=== PATIENT | female | born 1945 | race Caucasian/White ===

== ENCOUNTER 2022-08-27 22:30 | Inpatient (IN) | payer MEDICARE, BC ==
[2022-08-27] MEDS ORDERED: Albuterol 2.5 MG/0.5 ML NEB ONE (23:01)
[2022-08-27] MEDS ORDERED: methylPREDNISolone Sod Succ/PF 125 MG/2 ML VIAL ONE (23:01)
[2022-08-27] MEDS ORDERED: Ipratropium Bromide 2.5 ml Neb ONE (23:02)
[2022-08-27 23:18] LABS: #Eosinphils 0.3 thou/uL (0.0-0.7); #Lymphocytes 1.3 thou/uL (1.20-3.40); #Monocytes 0.4 thou/uL (0.11-0.59); #Neutrophils 5.2 thou/uL (1.40-6.50); %Basophils 0.4 % (0.0-1.0); %Eosinophils 3.6 % (0.0-10.0); %Monocytes 5.9 % (0.0-10.0); %Neutrophils 72.2 % (42.0-75.0); Hemoglobin 12.2 g/dL (12.0-16.0); Mean Corpuscular HGB CONC 31.1 g/dL (32.0-36.0); Mean Corpuscular Hemoglobin 29.3 pg (27.0-31.0); Mean Corpuscular Volume 94.2 fl (78.0-98.0); Mean Platelet Volume 6.9 fL (7.4-10.4); Platelet Count 169 10x3/uL (130-400); RBC Distribution Width 14.9 % (11.5-14.5); Red Blood Cell (RBC) Count 4.18 mill/uL (4.20-5.40); White Blood Cell (WBC) Count 7.3 10x3/uL (4.8-10.8)
[2022-08-27 23:42] LABS: Acetaminophen Less than 10.0 mcg/mL (10.0-30.0); Alcohol Less than 10 mg/dL (Less than 10); Salicylate Less than 8.0 mg/dL (15.0-30.0)
[2022-08-27 23:43] LABS: ALT (SGPT) 11 U/L (8-55); AST (SGOT) 15 U/L (5-34); Albumin 3.8 g/dL (3.4-4.8); Alkaline Phosphatase 93 U/L (40-110); Anion Gap 13 mmol/L (10-20); BUN (Urea Nitrogen) 16 mg/dL (9.8-20.1); Bilirubin, Total 1.2 mg/dL (0.2-1.2); Calc. Creatinine Clearance 0 mL/min (70-130); Carbon Dioxide 30 mmol/L (23-31); Chloride 104 mmol/L (98-107); Estimated GFR 85; Globulin 3.1 g/dL (2.4-3.5); Glucose 97 mg/dL (83-110); Potassium 4.6 mmol/L (3.5-5.1); Protein, Total 6.9 g/dL (5.8-8.1); Sodium 142 mmol/L (136-145)
[2022-08-27 23:58] LABS: Actual Bicarbonate (HCO3a) 34.6 mEq/L (22-28); Analyzer IN Cardio ER; Carboxyhemoglobin (COHb) 1.3 gm% (0.0-3.0); Hemoglobin (Hb) 13.4 g/dL (12.0-16.0); Potassium - ABG Lab 4.46 mmol/L (3.70-5.30)
[2022-08-27 23:59] LABS: CO2 Tension 96.5 mmHg (35.0-45.0); O2 Tension (PaO2), arterial 44.9 mmHg (> 70.0); pH, Arterial 7.17 (7.35-7.45)
[2022-08-28] LABS: ALV-art Gradient 62.635 mmHg (0-20); Puncture Site L RAD
[2022-08-28] MEDS ORDERED: Acetaminophen 325 MG TAB PO PRN (00:35)
[2022-08-28] MEDS ORDERED: Ondansetron PF 4 MG/2 ML Vial IVP PRN (00:35)
[2022-08-28] MEDS ORDERED: Cefepime 2 GM VIAL ONE (00:58)
[2022-08-28 01:54] LABS: Analyzer IN Cardio ER; Base Excess (BEa) 7.7 mEq/L (-2.0 to +3.0); Calcium, Ionized (arterial) 1.19 mmol/L (1.12-1.30); Hemoglobin (Hb) 13.5 g/dL (12.0-16.0); O2 Tension (PaO2), arterial 96.8 mmHg (> 70.0); Potassium - ABG Lab 4.57 mmol/L (3.70-5.30)
[2022-08-28 01:57] LABS: CO2 Tension 120.1 mmHg (35.0-45.0); Puncture Site L RAD; pH, Arterial 7.15 (7.35-7.45)
[2022-08-28 01:58] LABS: ALV-art Gradient 109.575 mmHg (0-20)
[2022-08-28 02:01] LABS: SARS-CoV-2 NAA Rapid Test Not Detected (NotDetected)
[2022-08-28] MEDS ORDERED: Sodium Chloride 0.9% 1,000 ML IV SCH ×2 (03:00→09:45)
[2022-08-28 03:02] LABS: Actual Bicarbonate (HCO3a) 32.6 mEq/L (22-28); Base Excess (BEa) 1.8 mEq/L (-2.0 to +3.0); Calcium, Ionized (arterial) 1.22 mmol/L (1.12-1.30); Carboxyhemoglobin (COHb) 1.1 gm% (0.0-3.0); Hemoglobin (Hb) 13.7 g/dL (12.0-16.0); O2 Tension (PaO2), arterial 66.4 mmHg (> 70.0); Potassium - ABG Lab 4.69 mmol/L (3.70-5.30)
[2022-08-28 03:07] LABS: CO2 Tension 86.1 mmHg (35.0-45.0); Puncture Site RRA
[2022-08-28 03:08] LABS: ALV-art Gradient 146.825 mmHg (0-20)
[2022-08-28] MEDS: Ipratropium/Albuterol 3 ML NEB NEB SCH ×6 (03:14→22:46)
[2022-08-28 03:35] LABS: Amphetamine Not Detected (NotDetected); Barbiturates Screen Not Detected (NotDetected); Benzodiazepine Screen Detected (NotDetected); Cocaine Metabolite Screen Not Detected (NotDetected); Methadone Not Detected (NotDetected); Methamphetamine Not Detected (NotDetected); Opiate Screen Detected (NotDetected); Oxycodone Screen Detected (NotDetected); Phencyclidine (PCP) Detected (NotDetected); THC/Cannabinoid Screen Not Detected (NotDetected); Tricyclic Screen Not Detected (NotDetected)
[2022-08-28 03:42] VITALS: BMI 33.6
[2022-08-28] MEDS: Azithromycin 500 MG in Sodium Chloride 0.9% 250 ML 250 ML IVPB SCH (04:05)
[2022-08-28 04:28] LABS: #Eosinphils 0.1 thou/uL (0.0-0.7); #Lymphocytes 0.4 thou/uL (1.20-3.40); #Monocytes 0.1 thou/uL (0.11-0.59); #Neutrophils 6.2 thou/uL (1.40-6.50); %Eosinophils 0.8 % (0.0-10.0); %Lymphocytes 6.2 % (21.0-51.0); %Monocytes 1.3 % (0.0-10.0); %Neutrophils 91.8 % (42.0-75.0); Hemoglobin 13.9 g/dL (12.0-16.0); Mean Corpuscular HGB CONC 31.2 g/dL (32.0-36.0); Mean Corpuscular Hemoglobin 29.5 pg (27.0-31.0); Mean Corpuscular Volume 94.6 fl (78.0-98.0); Mean Platelet Volume 7.1 fL (7.4-10.4); Platelet Count 151 10x3/uL (130-400); RBC Distribution Width 15.1 % (11.5-14.5); Red Blood Cell (RBC) Count 4.73 mill/uL (4.20-5.40); White Blood Cell (WBC) Count 6.8 10x3/uL (4.8-10.8)
[2022-08-28 04:31] LABS: Actual Bicarbonate (HCO3a) 29.5 mEq/L (22-28); Carboxyhemoglobin (COHb) 1.2 gm% (0.0-3.0); Hemoglobin (Hb) 13.5 g/dL (12.0-16.0); O2 Tension (PaO2), arterial 82.6 mmHg (> 70.0); pH, Arterial 7.23 (7.35-7.45)
[2022-08-28 04:33] LABS: CO2 Tension 72.4 mmHg (35.0-45.0); Puncture Site RRA
[2022-08-28 04:47] LABS: Anion Gap 14 mmol/L (10-20); BUN (Urea Nitrogen) 16 mg/dL (9.8-20.1); Calc. Creatinine Clearance 99 mL/min (70-130); Calcium 9.4 mg/dL (7.8-10.44); Carbon Dioxide 30 mmol/L (23-31); Chloride 103 mmol/L (98-107); Estimated GFR 88; Glucose 131 mg/dL (83-110); Potassium 4.9 mmol/L (3.5-5.1); Sodium 142 mmol/L (136-145)
[2022-08-28] MEDS: methylPREDNISolone Sod Succ 40 MG VIAL IVP SCH ×3 (05:54→18:12)
[2022-08-28 09:02] LABS: Legionella Urinary Ag Negative (Negative); Strep pneumo Urine Ag NEGATIVE (NEGATIVE)
[2022-08-28] MEDS: Nicotine 21 MG PATCH TOP SCH (11:42)
[2022-08-28] MEDS: cefTRIAXone\\ROCEPHIN 1 GM in Sodium Chloride 0.9% 100 ML IVPB SCH (11:45)
[2022-08-28] MEDS: Mometasone/Formoterol 200/5 60 PUFF INH SCH (19:35)
[2022-08-28] MEDS: Famotidine 20 MG TAB PO SCH (20:42)
[2022-08-29] MEDS: methylPREDNISolone Sod Succ 40 MG VIAL IVP SCH ×6 (00:13→23:59)
[2022-08-29] MEDS: Melatonin 3 MG TAB PO PRN ×2 (00:15→20:30)
[2022-08-29] MEDS: Azithromycin 500 MG in Sodium Chloride 0.9% 250 ML 250 ML IVPB SCH (00:18)
[2022-08-29] MEDS: Ipratropium/Albuterol 3 ML NEB NEB SCH ×6 (02:21→22:15)
[2022-08-29 05:48] LABS: #Lymphocytes 0.5 thou/uL (1.20-3.40); #Monocytes 0.2 thou/uL (0.11-0.59); %Basophils 0.1 % (0.0-1.0); %Eosinophils 0.1 % (0.0-10.0); %Lymphocytes 6.1 % (21.0-51.0); %Monocytes 1.9 % (0.0-10.0); %Neutrophils 91.9 % (42.0-75.0); Hemoglobin 12.2 g/dL (12.0-16.0); Mean Corpuscular HGB CONC 31.5 g/dL (32.0-36.0); Mean Corpuscular Volume 92.1 fl (78.0-98.0); Mean Platelet Volume 7.3 fL (7.4-10.4); Platelet Count 191 10x3/uL (130-400); RBC Distribution Width 14.7 % (11.5-14.5); Red Blood Cell (RBC) Count 4.19 mill/uL (4.20-5.40); White Blood Cell (WBC) Count 8.7 10x3/uL (4.8-10.8)
[2022-08-29 06:06] LABS: Anion Gap 13 mmol/L (10-20); BUN (Urea Nitrogen) 18 mg/dL (9.8-20.1); Calc. Creatinine Clearance 106 mL/min (70-130); Carbon Dioxide 29 mmol/L (23-31); Chloride 101 mmol/L (98-107); Estimated GFR 90; Glucose 164 mg/dL (83-110); Potassium 3.6 mmol/L (3.5-5.1); Sodium 139 mmol/L (136-145)
[2022-08-29] MEDS: Mometasone/Formoterol 200/5 60 PUFF INH SCH ×2 (07:40→18:56)
[2022-08-29] MEDS ORDERED: FLU VACC QS2022-23(65YR UP)/PF 240 MCG/0.7 ML SYRINGE IM ONE (09:00)
[2022-08-29] MEDS: Famotidine 20 MG TAB PO SCH ×2 (10:19→20:29)
[2022-08-29] MEDS: cefTRIAXone\\ROCEPHIN 1 GM in Sodium Chloride 0.9% 100 ML IVPB SCH (13:23)
[2022-08-29] MEDS: Nicotine 21 MG PATCH TOP SCH (13:25)
[2022-08-30] MEDS: Azithromycin 500 MG in Sodium Chloride 0.9% 250 ML 250 ML IVPB SCH ×2 (00:01→23:57)
[2022-08-30] MEDS: Ipratropium/Albuterol 3 ML NEB NEB SCH ×6 (02:18→22:42)
[2022-08-30] MEDS: methylPREDNISolone Sod Succ 40 MG VIAL IVP SCH ×4 (05:29→23:54)
[2022-08-30 06:49] LABS: Hemoglobin 13.3 g/dL (12.0-16.0); Mean Corpuscular HGB CONC 32.1 g/dL (32.0-36.0); Mean Corpuscular Hemoglobin 29.9 pg (27.0-31.0); Mean Corpuscular Volume 93.1 fl (78.0-98.0); Platelet Count 219 10x3/uL (130-400); RBC Distribution Width 14.8 % (11.5-14.5); Red Blood Cell (RBC) Count 4.44 mill/uL (4.20-5.40); White Blood Cell (WBC) Count 8.2 10x3/uL (4.8-10.8)
[2022-08-30 06:53] LABS: #Lymphocytes 0.6 thou/uL (1.20-3.40); #Monocytes 0.3 thou/uL (0.11-0.59); #Neutrophils 7.5 thou/uL (1.40-6.50); %Eosinophils 0.2 % (0.0-10.0); %Lymphocytes 6.9 % (21.0-51.0); %Neutrophils 88.9 % (42.0-75.0); Hemoglobin 13.5 g/dL (12.0-16.0); Mean Corpuscular HGB CONC 32.4 g/dL (32.0-36.0); Mean Corpuscular Hemoglobin 30.1 pg (27.0-31.0); Platelet Count 221 10x3/uL (130-400); RBC Distribution Width 14.8 % (11.5-14.5); Red Blood Cell (RBC) Count 4.47 mill/uL (4.20-5.40); White Blood Cell (WBC) Count 8.4 10x3/uL (4.8-10.8)
[2022-08-30 07:13] LABS: ALT (SGPT) 12 U/L (8-55); AST (SGOT) 21 U/L (5-34); Albumin 3.6 g/dL (3.4-4.8); Alkaline Phosphatase 75 U/L (40-110); Anion Gap 14 mmol/L (10-20); BUN (Urea Nitrogen) 19 mg/dL (9.8-20.1); Bilirubin, Total 0.8 mg/dL (0.2-1.2); Calc. Creatinine Clearance 100 mL/min (70-130); Calcium 9.5 mg/dL (7.8-10.44); Carbon Dioxide 31 mmol/L (23-31); Chloride 100 mmol/L (98-107); Estimated GFR 89; Globulin 3.1 g/dL (2.4-3.5); Glucose 130 mg/dL (83-110); Potassium 3.9 mmol/L (3.5-5.1); Protein, Total 6.7 g/dL (5.8-8.1); Sodium 141 mmol/L (136-145)
[2022-08-30] MEDS: Mometasone/Formoterol 200/5 60 PUFF INH SCH ×2 (07:56→19:15)
[2022-08-30] MEDS: Famotidine 20 MG TAB PO SCH ×2 (08:39→20:40)
[2022-08-30] MEDS ORDERED: Iopamidol 370 76% 100 ML VIAL ONE (09:11)
[2022-08-30] MEDS: cefTRIAXone\\ROCEPHIN 1 GM in Sodium Chloride 0.9% 100 ML IVPB SCH (13:02)
[2022-08-30] MEDS: Nicotine 21 MG PATCH TOP SCH (13:14)
[2022-08-30] MEDS: traZODone HCl 50 MG TAB PO PRN (21:36)
[2022-08-31] MEDS: Ipratropium/Albuterol 3 ML NEB NEB SCH ×3 (02:12→10:53)
[2022-08-31 05:57] LABS: Hemoglobin 14.5 g/dL (12.0-16.0); Mean Corpuscular HGB CONC 33.3 g/dL (32.0-36.0); Mean Corpuscular Hemoglobin 30.4 pg (27.0-31.0); Mean Corpuscular Volume 91.3 fl (78.0-98.0); Mean Platelet Volume 7.1 fL (7.4-10.4); Platelet Count 263 10x3/uL (130-400); RBC Distribution Width 14.8 % (11.5-14.5); Red Blood Cell (RBC) Count 4.77 mill/uL (4.20-5.40); White Blood Cell (WBC) Count 10.6 10x3/uL (4.8-10.8)
[2022-08-31] MEDS: methylPREDNISolone Sod Succ 40 MG VIAL IVP SCH ×4 (06:04→23:43)
[2022-08-31 06:19] LABS: ALT (SGPT) 19 U/L (8-55); AST (SGOT) 27 U/L (5-34); Alkaline Phosphatase 81 U/L (40-110); Anion Gap 19 mmol/L (10-20); BUN (Urea Nitrogen) 22 mg/dL (9.8-20.1); Bilirubin, Total 0.9 mg/dL (0.2-1.2); Calc. Creatinine Clearance 96 mL/min (70-130); Calcium 9.7 mg/dL (7.8-10.44); Carbon Dioxide 26 mmol/L (23-31); Chloride 99 mmol/L (98-107); Estimated GFR 85; Globulin 3.6 g/dL (2.4-3.5); Glucose 138 mg/dL (83-110); Potassium 3.5 mmol/L (3.5-5.1); Protein, Total 7.6 g/dL (5.8-8.1); Sodium 140 mmol/L (136-145)
[2022-08-31] MEDS: Mometasone/Formoterol 200/5 60 PUFF INH SCH ×2 (07:47→19:07)
[2022-08-31] MEDS: Famotidine 20 MG TAB PO SCH ×2 (09:06→20:28)
[2022-08-31] MEDS ORDERED: Metoprolol Tartrate 5 MG/5 ML VIAL IVP STA (11:00)
[2022-08-31] MEDS ORDERED: ALPRAZolam 0.25 MG TAB PO PRN (11:22)
[2022-08-31] MEDS ORDERED: ALPRAZolam 0.25 MG TAB PO SCH (11:30)
[2022-08-31] MEDS ORDERED: Labetalol HCl 100 MG/20 ML VIAL SLOW IVP SCH (11:42)
[2022-08-31] MEDS ORDERED: guaiFENesin ER 600 MG TAB PO SCH (11:45)
[2022-08-31] MEDS: cefTRIAXone\\ROCEPHIN 1 GM in Sodium Chloride 0.9% 100 ML IVPB SCH (12:36)
[2022-08-31] MEDS: Nicotine 21 MG PATCH TOP SCH (14:27)
[2022-08-31] MEDS ORDERED: Metoprolol Tartrate 50 MG TAB PO SCH (17:00)
[2022-08-31] MEDS ORDERED: Amlodipine 5 MG TAB PO SCH (17:00)
[2022-08-31] MEDS: Ipratropium/Albuterol 3 ML NEB EZPAP PRN (19:06)
[2022-08-31] MEDS: traZODone HCl 50 MG TAB PO PRN (20:28)
[2022-08-31] MEDS: guaiFENesin ER 600 MG TAB PO SCH (20:28)
[2022-08-31] MEDS: Metoprolol Tartrate 50 MG TAB PO SCH (20:29)
[2022-08-31] MEDS: Azithromycin 500 MG in Sodium Chloride 0.9% 250 ML 250 ML IVPB SCH (23:51)
[2022-09-01] MEDS: methylPREDNISolone Sod Succ 40 MG VIAL IVP SCH ×2 (06:15→12:24)
[2022-09-01] MEDS: Metoprolol Tartrate 50 MG TAB PO SCH ×2 (09:21→21:32)
[2022-09-01] MEDS: Famotidine 20 MG TAB PO SCH ×2 (09:21→21:31)
[2022-09-01] MEDS: Amlodipine 5 MG TAB PO SCH (09:21)
[2022-09-01] MEDS: guaiFENesin ER 600 MG TAB PO SCH ×2 (09:21→21:32)
[2022-09-01] MEDS: Nicotine 21 MG PATCH TOP SCH (09:24)
[2022-09-01] MEDS ORDERED: Sertraline 25 MG TAB PO SCH (09:45)
[2022-09-01] MEDS: Mometasone/Formoterol 200/5 60 PUFF INH SCH ×2 (11:02→18:55)
[2022-09-01] MEDS: cefTRIAXone\\ROCEPHIN 1 GM in Sodium Chloride 0.9% 100 ML IVPB SCH (12:24)
[2022-09-01] MEDS: Ipratropium/Albuterol 3 ML NEB EZPAP PRN (18:54)
[2022-09-01] MEDS: traZODone HCl 50 MG TAB PO PRN (21:32)
[2022-09-02] MEDS: Mometasone/Formoterol 200/5 60 PUFF INH SCH (07:09)
[2022-09-02 07:32] VITALS: BP 118/78; TEMP 97.8
[2022-09-02] MEDS: guaiFENesin ER 600 MG TAB PO SCH (07:32)
[2022-09-02] MEDS: Amlodipine 5 MG TAB PO SCH (07:33)
[2022-09-02] MEDS: Famotidine 20 MG TAB PO SCH (07:33)
[2022-09-02] MEDS: Metoprolol Tartrate 50 MG TAB PO SCH (07:33)
[2022-09-02] MEDS ORDERED: predniSONE 20 MG TAB PO SCH (08:00)
[2022-09-02] MEDS ORDERED: Sertraline 25 MG TAB PO SCH (09:00)
== END 2022-09-02 09:47 | disposition left against medical advice (07) | DRG 193 ==
LOC: ERS 22:30 → CCU 08-28 00:45 → MSONC 08-28 16:31
PROVIDERS: ADMIT Internal Medicine; ATTEND Family Medicine
PROC: 5A09357 Assistance with Respiratory Ventilation, Less than 24 Consecutive Hours, Continuous Positive Airway Pressure (ICD-10-PCS; principal; 2022-08-28)
DX: J18.9 Pneumonia, unspecified organism (principal); J96.21 Acute and chronic respiratory failure with hypoxia; J96.22 Acute and chronic respiratory failure with hypercapnia; J44.1 Chronic obstructive pulmonary disease with (acute) exacerbation; J44.0 Chronic obstructive pulmonary disease with (acute) lower respiratory infection; Z51.5 Encounter for palliative care; Z20.822 Contact with and (suspected) exposure to COVID-19; I10 Essential (primary) hypertension; R91.8 Other nonspecific abnormal finding of lung field; F17.210 Nicotine dependence, cigarettes, uncomplicated; Z98.890 Other specified postprocedural states; Z88.8 Allergy status to other drugs, medicaments and biological substances; Z88.2 Allergy status to sulfonamides; Z79.51 Long term (current) use of inhaled steroids; Z99.81 Dependence on supplemental oxygen; Z79.01 Long term (current) use of anticoagulants
CPT/HCPCS: 36415; 36600; 71045; 71046; 71260; 80048; 80053; 80306; 80307; 82805; 83605; 83880; 84484; 85025; 85027; 87040; 87070; 87205; 87449; 87633; 87899; 93005; 94640; 94660; 96374; 96375; J0456; J0692; J0696; J1650; J2920; J2930; J3490; J7050; J7512; J7611; J7620; Q9967; U0002

== ENCOUNTER 2022-09-18 11:53 | Inpatient (IN) | payer OTHER, MEDICARE, BC ==
[2022-09-18] MEDS ORDERED: Boostrix 0.5 ML (Tdap) VIAL (>/=7 yrs of age) ONE (12:03)
[2022-09-18] MEDS ORDERED: CEFAZOLIN 2 GM VIAL ONE (12:03)
[2022-09-18] MEDS ORDERED: Calcium Chloride 1 GM/10 ML Abboject SYRINGE ONE (12:05)
[2022-09-18 12:32] LABS: INR-International Normal Ratio 0.9; PTT 26.5 sec (22.9-36.1); Prothrombin Time 12.4 sec (12.0-14.7)
[2022-09-18 12:38] LABS: Hemoglobin 9.7 g/dL (12.0-16.0); Mean Corpuscular HGB CONC 31.2 g/dL (32.0-36.0); Mean Corpuscular Hemoglobin 29.7 pg (27.0-31.0); Mean Corpuscular Volume 95.2 fl (78.0-98.0); Mean Platelet Volume 7.5 fL (7.4-10.4); Platelet Count 139 10x3/uL (130-400); RBC Distribution Width 14.6 % (11.5-14.5); Red Blood Cell (RBC) Count 3.26 mill/uL (4.20-5.40); White Blood Cell (WBC) Count 4.9 10x3/uL (4.8-10.8)
[2022-09-18] MEDS ORDERED: Ondansetron ODT 4 MG TAB PO PRN (12:42)
[2022-09-18] MEDS ORDERED: Dextrose 5% in Water 1,000 ML IV PRN (12:42)
[2022-09-18] MEDS ORDERED: Ondansetron PF 4 MG/2 ML Vial IVP PRN (12:42)
[2022-09-18] MEDS ORDERED: TETANUS, DIPHTHERIA TOX,ADULT (TDVAX) 0.5 ML VIAL IM ONE (12:42)
[2022-09-18] MEDS ORDERED: Dextrose 50% Abboject 50 ML SYRINGE SLOW IVP PRN (12:42)
[2022-09-18 12:52] LABS: #Eosinphils 0.1 thou/uL (0.0-0.7); #Lymphocytes 0.8 thou/uL (1.20-3.40); #Monocytes 0.4 thou/uL (0.11-0.59); #Neutrophils 3.6 thou/uL (1.40-6.50); %Basophils 0.5 % (0.0-1.0); %Eosinophils 2.8 % (0.0-10.0); %Lymphocytes 16.4 % (21.0-51.0); %Monocytes 7.1 % (0.0-10.0); %Neutrophils 73.3 % (42.0-75.0); MDiff Complete? YES; Platelet Morphology Comment Appears Adequate; Polychromasia SLIGHT = 2-3 cells (100X) (0-2/hpf)
[2022-09-18 12:53] LABS: ALT (SGPT) 13 U/L (8-55); AST (SGOT) 14 U/L (5-34); Albumin 2.5 g/dL (3.4-4.8); Alkaline Phosphatase 64 U/L (40-110); Anion Gap 10 mmol/L (10-20); BUN (Urea Nitrogen) 15 mg/dL (9.8-20.1); Bilirubin, Total 0.8 mg/dL (0.2-1.2); Calc. Creatinine Clearance 0 mL/min (70-130); Calcium 8.6 mg/dL (7.8-10.44); Carbon Dioxide 34 mmol/L (23-31); Chloride 98 mmol/L (98-107); Estimated GFR 90; Globulin 2.6 g/dL (2.4-3.5); Glucose 150 mg/dL (83-110); Potassium 3.7 mmol/L (3.5-5.1); Protein, Total 5.1 g/dL (5.8-8.1); Sodium 138 mmol/L (136-145)
[2022-09-18] MEDS ORDERED: Acetaminophen 325 MG TAB PO SCH (13:00)
[2022-09-18 13:44] LABS: Analyzer IN Cardio ER; Calcium, Ionized (arterial) 1.28 mmol/L (1.12-1.30); Carboxyhemoglobin (COHb) 0.6 gm% (0.0-3.0); Hemoglobin (Hb) 11.5 g/dL (12.0-16.0); O2 Tension (PaO2), arterial 94.8 mmHg (> 70.0); Potassium - ABG Lab 3.62 mmol/L (3.70-5.30)
[2022-09-18 13:59] LABS: CO2 Tension 79.8 mmHg (35.0-45.0); Puncture Site RRA
[2022-09-18] MEDS ORDERED: Fentanyl 100 MCG/2 ML VIAL SLOW IVP SCH (15:15)
[2022-09-18 15:27] VITALS: BMI 40.0
[2022-09-18] MEDS: Ipratropium/Albuterol 3 ML NEB NEB SCH ×2 (15:33→19:11)
[2022-09-18 16:06] LABS: Actual Bicarbonate (HCO3v) 32 mEq/L (22-28); Base Excess 6.7 mEq/L (-2.0 to +3.0); Calcium, Ionized (venous) 1.15 mmol/L (1.16-1.32); Chloride (VBG) 100 mmol/L (98-106); Potassium (VBG) 3.73 mmol/L (3.70-5.30); Sodium 137.9 mmol/L (133-146); pH (venous) 7.46 (7.32-7.43)
[2022-09-18 16:31] LABS: SARS-CoV-2 NAA Rapid Test Not Detected (NotDetected)
[2022-09-18] MEDS: traMADol HCl 50 MG TAB PO PRN (16:38)
[2022-09-18] MEDS: Acetaminophen 325 MG TAB PO SCH ×2 (17:31→23:29)
[2022-09-18] MEDS: Nystatin Cream 15 GM TUBE TOP SCH ×2 (17:32→23:29)
[2022-09-18] MEDS: Morphine 2 MG/ML VIAL SLOW IVP SCH (18:34)
[2022-09-18] MEDS: traMADol HCl 50 MG TAB PO SCH ×2 (18:34→23:28)
[2022-09-18 18:39] LABS: Hemoglobin 10.9 g/dL (12.0-16.0)
[2022-09-18] MEDS: Budesonide 0.5 MG/2 ML NEB NEB SCH (19:13)
[2022-09-18] MEDS: Famotidine 20 MG TAB PO SCH (23:28)
[2022-09-19] MEDS: Ibuprofen 200 MG TAB PO SCH ×3 (00:23→12:41)
[2022-09-19] MEDS: Morphine 2 MG/ML VIAL SLOW IVP SCH (02:23)
[2022-09-19] MEDS: traMADol HCl 50 MG TAB PO SCH ×3 (05:57→17:49)
[2022-09-19] MEDS: Acetaminophen 325 MG TAB PO SCH ×4 (05:58→22:49)
[2022-09-19] MEDS: Budesonide 0.5 MG/2 ML NEB NEB SCH (07:23)
[2022-09-19] MEDS: Ipratropium/Albuterol 3 ML NEB NEB SCH ×4 (07:23→18:59)
[2022-09-19] MEDS ORDERED: Ferrous Sulfate 325 MG TAB PO SCH (08:00)
[2022-09-19 08:46] LABS: #Eosinphils 0.2 thou/uL (0.0-0.7); #Lymphocytes 1.1 thou/uL (1.20-3.40); #Monocytes 0.4 thou/uL (0.11-0.59); #Neutrophils 3.1 thou/uL (1.40-6.50); %Basophils 0.4 % (0.0-1.0); %Eosinophils 3.5 % (0.0-10.0); %Lymphocytes 23.1 % (21.0-51.0); %Monocytes 7.3 % (0.0-10.0); %Neutrophils 65.6 % (42.0-75.0); Hemoglobin 9.8 g/dL (12.0-16.0); Mean Corpuscular HGB CONC 31.5 g/dL (32.0-36.0); Mean Corpuscular Hemoglobin 28.9 pg (27.0-31.0); Mean Corpuscular Volume 91.8 fl (78.0-98.0); Mean Platelet Volume 7.6 fL (7.4-10.4); Platelet Count 135 10x3/uL (130-400); RBC Distribution Width 17.9 % (11.5-14.5); Red Blood Cell (RBC) Count 3.38 mill/uL (4.20-5.40); White Blood Cell (WBC) Count 4.7 10x3/uL (4.8-10.8)
[2022-09-19 09:00] LABS: Anion Gap 9 mmol/L (10-20); BUN (Urea Nitrogen) 13 mg/dL (9.8-20.1); Calc. Creatinine Clearance 122 mL/min (70-130); Calcium 8.9 mg/dL (7.8-10.44); Carbon Dioxide 34 mmol/L (23-31); Chloride 98 mmol/L (98-107); Estimated GFR 91; Glucose 100 mg/dL (83-110); Magnesium 1.8 mg/dL (1.6-2.6); Phosphorus 3.6 mg/dL (2.3-4.7); Potassium 3.4 mmol/L (3.5-5.1); Sodium 138 mmol/L (136-145)
[2022-09-19] MEDS: Nystatin Cream 15 GM TUBE TOP SCH ×2 (09:00→21:00)
[2022-09-19] MEDS: Ferrous Sulfate 325 MG TAB PO SCH (09:12)
[2022-09-19] MEDS: Ascorbic Acid 500 mg Chewable Tablet PO SCH (09:12)
[2022-09-19] MEDS: Famotidine 20 MG TAB PO SCH ×2 (09:12→22:48)
[2022-09-19] MEDS ORDERED: Magnesium 2 GM/50 ML(in water) 2 GM in Premix Bag 1 BAG IVPB SCH (17:00)
[2022-09-19] MEDS ORDERED: Ibuprofen 200 MG TAB PO PRN (17:01)
[2022-09-19] MEDS: Potassium Chloride 20 MEQ in Premix Bag 1 BAG IVPB SCH ×2 (18:25→22:50)
[2022-09-19] MEDS: Mometasone 200 MCG/Formoterol 5 MCG 120 PUFF INHALER INH SCH (19:00)
[2022-09-19] MEDS: Metoprolol Tartrate 50 MG TAB PO SCH (22:49)
[2022-09-20] MEDS: Acetaminophen 325 MG TAB PO SCH (05:58)
[2022-09-20] MEDS: Ipratropium/Albuterol 3 ML NEB NEB SCH ×4 (07:13→19:08)
[2022-09-20] MEDS: Mometasone 200 MCG/Formoterol 5 MCG 120 PUFF INHALER INH SCH ×2 (07:15→19:08)
[2022-09-20 07:18] LABS: Anion Gap 10 mmol/L (10-20); BUN (Urea Nitrogen) 11 mg/dL (9.8-20.1); Calc. Creatinine Clearance 122 mL/min (70-130); Calcium 8.7 mg/dL (7.8-10.44); Carbon Dioxide 32 mmol/L (23-31); Chloride 99 mmol/L (98-107); Estimated GFR 91; Glucose 108 mg/dL (83-110); Magnesium 1.9 mg/dL (1.6-2.6); Phosphorus 3.4 mg/dL (2.3-4.7); Potassium 3.9 mmol/L (3.5-5.1); Sodium 137 mmol/L (136-145)
[2022-09-20 07:26] LABS: #Eosinphils 0.2 thou/uL (0.0-0.7); #Lymphocytes 0.8 thou/uL (1.20-3.40); #Monocytes 0.5 thou/uL (0.11-0.59); #Neutrophils 4.1 thou/uL (1.40-6.50); %Basophils 0.6 % (0.0-1.0); %Eosinophils 2.9 % (0.0-10.0); %Lymphocytes 14.2 % (21.0-51.0); %Monocytes 8.2 % (0.0-10.0); %Neutrophils 74.2 % (42.0-75.0); Hemoglobin 10.7 g/dL (12.0-16.0); Mean Corpuscular HGB CONC 31.5 g/dL (32.0-36.0); Mean Corpuscular Hemoglobin 29.2 pg (27.0-31.0); Mean Corpuscular Volume 92.7 fl (78.0-98.0); Mean Platelet Volume 7.1 fL (7.4-10.4); Platelet Count 182 10x3/uL (130-400); RBC Distribution Width 17.8 % (11.5-14.5); Red Blood Cell (RBC) Count 3.67 mill/uL (4.20-5.40); White Blood Cell (WBC) Count 5.5 10x3/uL (4.8-10.8)
[2022-09-20] MEDS: predniSONE 5 MG TAB PO SCH (08:43)
[2022-09-20] MEDS: Sertraline 25 MG TAB PO SCH (08:43)
[2022-09-20] MEDS: Ferrous Sulfate 325 MG TAB PO SCH (08:43)
[2022-09-20] MEDS: Famotidine 20 MG TAB PO SCH ×2 (08:43→21:23)
[2022-09-20] MEDS: Ascorbic Acid 500 mg Chewable Tablet PO SCH (08:43)
[2022-09-20] MEDS ORDERED: Magnesium 2 GM/50 ML(in water) 2 GM in Premix Bag 1 BAG IVPB SCH (08:45)
[2022-09-20] MEDS ORDERED: Lidocaine 4% Topical Sol 50 ML BOT TOP SCH (09:00)
[2022-09-20] MEDS: Metoprolol Tartrate 50 MG TAB PO SCH ×2 (09:56→21:23)
[2022-09-20 11:09] LABS: Hemoglobin A1c 5.7 % (4.0-6.0)
[2022-09-20] MEDS ORDERED: Morphine 2 MG/ML VIAL SLOW IVP PRN ×2 (11:11→13:22)
[2022-09-20] MEDS: Acetaminophen 500 MG TAB PO SCH ×3 (11:16→23:42)
[2022-09-20] MEDS: traMADol HCl 50 MG TAB PO PRN (11:16)
[2022-09-20] MEDS: Nystatin Cream 15 GM TUBE TOP SCH ×2 (12:09→21:24)
[2022-09-20] MEDS ORDERED: Melatonin 3 MG TAB PO PRN (19:59)
[2022-09-20] MEDS ORDERED: ALPRAZolam 1 MG TAB PO PRN (19:59)
[2022-09-21] MEDS: Acetaminophen 500 MG TAB PO SCH ×3 (05:26→16:48)
[2022-09-21] MEDS: Ipratropium/Albuterol 3 ML NEB NEB SCH ×2 (06:46→13:57)
[2022-09-21] MEDS: Mometasone 200 MCG/Formoterol 5 MCG 120 PUFF INHALER INH SCH (06:48)
[2022-09-21] MEDS: predniSONE 5 MG TAB PO SCH (09:19)
[2022-09-21] MEDS: Metoprolol Tartrate 50 MG TAB PO SCH (09:19)
[2022-09-21] MEDS: Ferrous Sulfate 325 MG TAB PO SCH (09:19)
[2022-09-21] MEDS: Ascorbic Acid 500 mg Chewable Tablet PO SCH (09:19)
[2022-09-21] MEDS: Sertraline 25 MG TAB PO SCH (09:19)
[2022-09-21] MEDS: Nystatin Cream 15 GM TUBE TOP SCH (09:20)
[2022-09-21] MEDS: Famotidine 20 MG TAB PO SCH (09:20)
[2022-09-21 16:37] VITALS: BP 121/81; TEMP 98
== END 2022-09-21 18:05 | disposition home or self-care (01) | DRG 604 ==
LOC: ERS 11:53 → CCU 14:32 → IMCU/EMU 09-19 00:49 → SURG B 09-19 21:12
PROVIDERS: ADMIT Surgery; ATTEND Surgery
PROC: 30233N1 Transfusion of Nonautologous Red Blood Cells into Peripheral Vein, Percutaneous Approach (ICD-10-PCS; principal; 2022-09-18)
PROC: 5A09357 Assistance with Respiratory Ventilation, Less than 24 Consecutive Hours, Continuous Positive Airway Pressure (ICD-10-PCS; 2022-09-19)
DX: S81.812A Laceration without foreign body, left lower leg, initial encounter (principal); J96.21 Acute and chronic respiratory failure with hypoxia; R57.8 Other shock; J96.22 Acute and chronic respiratory failure with hypercapnia; J44.1 Chronic obstructive pulmonary disease with (acute) exacerbation; I95.9 Hypotension, unspecified; I10 Essential (primary) hypertension; F17.210 Nicotine dependence, cigarettes, uncomplicated; G89.11 Acute pain due to trauma; W01.0XXA Fall on same level from slipping, tripping and stumbling without subsequent striking against object, initial encounter; R91.8 Other nonspecific abnormal finding of lung field; Z20.822 Contact with and (suspected) exposure to COVID-19; Z98.890 Other specified postprocedural states; Z99.81 Dependence on supplemental oxygen; Z79.899 Other long term (current) drug therapy; Z88.2 Allergy status to sulfonamides; I08.3 Combined rheumatic disorders of mitral, aortic and tricuspid valves
CPT/HCPCS: 36415; 36416; 36430; 36600; 71045; 80048; 80053; 82805; 83036; 83735; 84100; 84145; 84484; 85025; 85610; 85730; 86850; 86900; 86901; 90715; 93005; 93306; 94640; 94660; 97139; G0390; J1650; J2272; J3010; J3475; J3480; J7512; J7620; J7626; P9016; U0002

== ENCOUNTER 2022-09-25 16:41 | Observation (INO) | payer MEDICARE, BC ==
[~2022-09-25 16:41] MED LIST: Iopamidol-370 76% 500 ML 1 ML ONE
[2022-09-25] MEDS ORDERED: Clindamycin/D5W 900 mg/50 ml Premix Bag ONE (17:58)
[2022-09-25 18:18] LABS: #Eosinphils 0.2 thou/uL (0.0-0.7); #Lymphocytes 0.9 thou/uL (1.20-3.40); #Monocytes 0.5 thou/uL (0.11-0.59); #Neutrophils 4.3 thou/uL (1.40-6.50); %Basophils 0.5 % (0.0-1.0); %Eosinophils 4.1 % (0.0-10.0); %Lymphocytes 14.5 % (21.0-51.0); %Monocytes 7.8 % (0.0-10.0); %Neutrophils 73.2 % (42.0-75.0); Hemoglobin 10.4 g/dL (12.0-16.0); Mean Corpuscular HGB CONC 30.6 g/dL (32.0-36.0); Mean Corpuscular Hemoglobin 28.9 pg (27.0-31.0); Mean Corpuscular Volume 94.3 fl (78.0-98.0); Mean Platelet Volume 7.2 fL (7.4-10.4); Platelet Count 302 10x3/uL (130-400); RBC Distribution Width 17.1 % (11.5-14.5); White Blood Cell (WBC) Count 5.9 10x3/uL (4.8-10.8)
[2022-09-25 18:40] LABS: ALT (SGPT) 13 U/L (8-55); AST (SGOT) 16 U/L (5-34); Albumin 3.4 g/dL (3.4-4.8); Alkaline Phosphatase 87 U/L (40-110); Anion Gap 15 mmol/L (10-20); BUN (Urea Nitrogen) 14 mg/dL (9.8-20.1); Bilirubin, Total 0.9 mg/dL (0.2-1.2); Calc. Creatinine Clearance 0 mL/min (70-130); Calcium 8.8 mg/dL (7.8-10.44); Carbon Dioxide 28 mmol/L (23-31); Chloride 99 mmol/L (98-107); Estimated GFR 83; Globulin 3.3 g/dL (2.4-3.5); Glucose 116 mg/dL (83-110); Potassium 3.8 mmol/L (3.5-5.1); Protein, Total 6.7 g/dL (5.8-8.1); Sodium 138 mmol/L (136-145)
== END 2022-09-25 22:16 | disposition home or self-care (01) ==
LOC: ERS 16:41 → ERHOLD 20:47
PROVIDERS: ADMIT Surgery; ATTEND Surgery
DX: E11.52 Type 2 diabetes mellitus with diabetic peripheral angiopathy with gangrene (principal); I96 Gangrene, not elsewhere classified; S81.802A Unspecified open wound, left lower leg, initial encounter; J44.9 Chronic obstructive pulmonary disease, unspecified; I10 Essential (primary) hypertension; F17.210 Nicotine dependence, cigarettes, uncomplicated; I45.10 Unspecified right bundle-branch block; R60.0 Localized edema; M17.12 Unilateral primary osteoarthritis, left knee; Z79.899 Other long term (current) drug therapy; Z88.2 Allergy status to sulfonamides; W19.XXXA Unspecified fall, initial encounter
CPT/HCPCS: 36415; 80053; 83605; 85025; 85652; 86140; 87040; 87070; 87205; 93005; 93970; 96365; J3490; Q9967

== ENCOUNTER 2022-10-03 17:58 | Inpatient (IN) | payer MEDICARE, BC ==
[2022-10-03] MEDS ORDERED: Cefepime 2 GM VIAL ONE (19:45)
[2022-10-03] MEDS ORDERED: Vancomycin 1 GM/200 ML (FROZEN) BAG ONE (19:46)
[2022-10-03 19:53] LABS: #Eosinphils 0.1 thou/uL (0.0-0.7); #Lymphocytes 1.2 thou/uL (1.20-3.40); #Monocytes 0.7 thou/uL (0.11-0.59); #Neutrophils 5.5 thou/uL (1.40-6.50); %Basophils 0.5 % (0.0-1.0); %Eosinophils 1.5 % (0.0-10.0); %Lymphocytes 16.2 % (21.0-51.0); %Monocytes 8.7 % (0.0-10.0); %Neutrophils 73.1 % (42.0-75.0); Hemoglobin 10.3 g/dL (12.0-16.0); Mean Corpuscular HGB CONC 29.9 g/dL (32.0-36.0); Mean Corpuscular Hemoglobin 27.9 pg (27.0-31.0); Mean Corpuscular Volume 93.1 fl (78.0-98.0); Mean Platelet Volume 7.6 fL (7.4-10.4); Platelet Count 270 10x3/uL (130-400); RBC Distribution Width 17.3 % (11.5-14.5); Red Blood Cell (RBC) Count 3.69 mill/uL (4.20-5.40); White Blood Cell (WBC) Count 7.5 10x3/uL (4.8-10.8)
[2022-10-03 20:08] LABS: ALT (SGPT) 7 U/L (8-55); AST (SGOT) 22 U/L (5-34); Alkaline Phosphatase 85 U/L (40-110); Anion Gap 16 mmol/L (10-20); BUN (Urea Nitrogen) 13 mg/dL (9.8-20.1); Bilirubin, Total 0.6 mg/dL (0.2-1.2); CRP (Inflammatory) 6.05 mg/dL (= or < 0.5); Calc. Creatinine Clearance 0 mL/min (70-130); Calcium 8.5 mg/dL (7.8-10.44); Carbon Dioxide 25 mmol/L (23-31); Chloride 101 mmol/L (98-107); Estimated GFR 85; Globulin 3.5 g/dL (2.4-3.5); Glucose 86 mg/dL (83-110); Potassium 3.7 mmol/L (3.5-5.1); Protein, Total 6.5 g/dL (5.8-8.1); Sodium 138 mmol/L (136-145)
[2022-10-03] MEDS ORDERED: Morphine 2 MG/ML VIAL ONE (20:29)
[2022-10-03] MEDS ORDERED: TETANUS, DIPHTHERIA TOX,ADULT (TDVAX) 0.5 ML VIAL IM ONE (21:18)
[2022-10-03] MEDS ORDERED: Ipratropium/Albuterol 3 ML NEB NEB PRN (21:18)
[2022-10-03] MEDS ORDERED: Dextrose 5% in Water 1,000 ML IV PRN (21:18)
[2022-10-03] MEDS ORDERED: Ondansetron PF 4 MG/2 ML Vial IVP PRN (21:18)
[2022-10-03] MEDS ORDERED: Morphine 2 MG/ML VIAL SLOW IVP PRN (21:18)
[2022-10-03] MEDS ORDERED: Ondansetron ODT 4 MG TAB PO PRN (21:18)
[2022-10-03] MEDS ORDERED: traMADol HCl 50 MG TAB PO PRN ×2 (21:18→21:29)
[2022-10-03] MEDS ORDERED: Dextrose 50% Abboject 50 ML SYRINGE SLOW IVP PRN (21:18)
[2022-10-03] MEDS: traMADol HCl 50 MG TAB PO SCH (21:30)
[2022-10-03] MEDS: Acetaminophen 500 MG TAB PO SCH (21:30)
[2022-10-03 22:29] LABS: Magnesium 1.9 mg/dL (1.6-2.6)
[2022-10-03] MEDS ORDERED: Sodium Chloride 0.9% 1,000 ML IV SCH (23:55)
[2022-10-04] MEDS: Morphine 4 MG/ML VIAL SLOW IVP PRN ×2 (00:21→03:00)
[2022-10-04] MEDS: Cyclobenzaprine 10 MG TAB PO PRN ×2 (00:21→20:08)
[2022-10-04 01:58] LABS: SARS-CoV-2 NAA Rapid Test Not Detected (NotDetected)
[2022-10-04 02:05] VITALS: BMI 36.4
[2022-10-04] MEDS: traMADol HCl 50 MG TAB PO SCH ×4 (04:00→20:08)
[2022-10-04] MEDS: Acetaminophen 500 MG TAB PO SCH ×4 (04:00→20:21)
[2022-10-04 06:25] LABS: #Eosinphils 0.1 thou/uL (0.0-0.7); #Lymphocytes 0.8 thou/uL (1.20-3.40); #Monocytes 0.5 thou/uL (0.11-0.59); #Neutrophils 4.9 thou/uL (1.40-6.50); %Basophils 0.1 % (0.0-1.0); %Eosinophils 1.4 % (0.0-10.0); %Lymphocytes 12.5 % (21.0-51.0); %Monocytes 7.9 % (0.0-10.0); %Neutrophils 78.1 % (42.0-75.0); Hemoglobin 9.1 g/dL (12.0-16.0); Mean Corpuscular Hemoglobin 28.6 pg (27.0-31.0); Mean Corpuscular Volume 92.4 fl (78.0-98.0); Mean Platelet Volume 6.7 fL (7.4-10.4); Platelet Count 249 10x3/uL (130-400); RBC Distribution Width 17.6 % (11.5-14.5); Red Blood Cell (RBC) Count 3.18 mill/uL (4.20-5.40); White Blood Cell (WBC) Count 6.3 10x3/uL (4.8-10.8)
[2022-10-04 06:53] LABS: Anion Gap 9 mmol/L (10-20); BUN (Urea Nitrogen) 11 mg/dL (9.8-20.1); Calc. Creatinine Clearance 119 mL/min (70-130); Carbon Dioxide 31 mmol/L (23-31); Chloride 103 mmol/L (98-107); Estimated GFR 91; Glucose 123 mg/dL (83-110); Potassium 3.3 mmol/L (3.5-5.1); Sodium 140 mmol/L (136-145)
[2022-10-04] MEDS: Ipratropium/Albuterol 3 ML NEB NEB SCH ×3 (07:36→19:40)
[2022-10-04] MEDS ORDERED: Potassium Chloride 40 MEQ in Premix Bag 1 BAG IVPB SCH (08:00)
[2022-10-04] MEDS: Polyethylene Glycol 3350 17 GM Packet PO SCH (08:53)
[2022-10-04] MEDS: Senokot S 8.6-50 MG TAB PO SCH ×2 (08:53→20:07)
[2022-10-04] MEDS: Famotidine 20 MG TAB PO SCH ×2 (08:53→20:07)
[2022-10-04] MEDS: CEFEPIME HCL IN DEXTROSE 5 % 1 GM/50 ML BAG IVPB SCH ×2 (08:53→20:07)
[2022-10-04] MEDS: Vancomycin 1 GM in Premix Bag 1 BAG IVPB SCH ×2 (09:49→22:57)
[2022-10-04] MEDS: Potassium Chloride 20 MEQ in Premix Bag 1 BAG IVPB SCH ×2 (11:34→14:51)
[2022-10-04] MEDS ORDERED: ALPRAZolam 1 MG TAB PO PRN (13:26)
[2022-10-04] MEDS: Mometasone 200 MCG/Formoterol 5 MCG 120 PUFF INHALER INH SCH (19:41)
[2022-10-04] MEDS: Metoprolol Tartrate 50 MG TAB PO SCH (20:07)
[2022-10-04] MEDS ORDERED: Non-Formulary Item 1 EACH (Budesonide-Formoterol [Symbicort 160-4.5] 160 MG/4.5 MG Aer) INH SCH (21:00)
[2022-10-05] MEDS: traMADol HCl 50 MG TAB PO SCH ×2 (04:30→09:46)
[2022-10-05] MEDS: Acetaminophen 500 MG TAB PO SCH ×2 (04:30→09:48)
[2022-10-05] MEDS: Ipratropium/Albuterol 3 ML NEB NEB SCH ×2 (08:46→13:03)
[2022-10-05] MEDS: Mometasone 200 MCG/Formoterol 5 MCG 120 PUFF INHALER INH SCH (08:46)
[2022-10-05] MEDS ORDERED: Amlodipine 5 MG TAB PO SCH (09:00)
[2022-10-05] MEDS ORDERED: Furosemide 20 MG TAB PO SCH (09:00)
[2022-10-05] MEDS ORDERED: Sertraline 25 MG TAB PO SCH (09:00)
[2022-10-05] MEDS: Famotidine 20 MG TAB PO SCH (09:45)
[2022-10-05] MEDS: Senokot S 8.6-50 MG TAB PO SCH (09:46)
[2022-10-05] MEDS: Polyethylene Glycol 3350 17 GM Packet PO SCH (09:46)
[2022-10-05] MEDS: CEFEPIME HCL IN DEXTROSE 5 % 1 GM/50 ML BAG IVPB SCH (09:47)
[2022-10-05] MEDS: Metoprolol Tartrate 50 MG TAB PO SCH (09:47)
[2022-10-05 12:44] VITALS: BP 105/68; TEMP 97.6
[2022-10-05] MEDS ORDERED: Amoxicillin/Potassium Clav 875 MG TAB PO SCH (21:00)
[2022-10-07] MEDS ORDERED: FLU VACC QS2022-23(65YR UP)/PF 240 MCG/0.7 ML SYRINGE IM ONE (09:00)
== END 2022-10-05 14:27 | DRG 603 ==
LOC: ERS 17:58 → SURG B 20:17
PROVIDERS: ADMIT Surgery; ATTEND Surgery
DX: L03.116 Cellulitis of left lower limb (principal); J96.10 Chronic respiratory failure, unspecified whether with hypoxia or hypercapnia; Z20.822 Contact with and (suspected) exposure to COVID-19; J44.9 Chronic obstructive pulmonary disease, unspecified; I10 Essential (primary) hypertension; Z99.81 Dependence on supplemental oxygen; Z90.710 Acquired absence of both cervix and uterus; Z88.2 Allergy status to sulfonamides; Z79.899 Other long term (current) drug therapy; F17.210 Nicotine dependence, cigarettes, uncomplicated
CPT/HCPCS: 36415; 36416; 80048; 80053; 83605; 83735; 84100; 85025; 85652; 86140; 87040; 87070; 87077; 87186; 87205; 90714; 94640; 97139; J0692; J1650; J2270; J2272; J3370-JW; J3480; J7050; J7620; Q9967; U0002

== ENCOUNTER 2022-10-11 16:50 | Inpatient (IN) | payer MEDICARE, BC ==
[2022-10-11 17:45] LABS: #Eosinphils 0.1 thou/uL (0.0-0.7); #Lymphocytes 1.1 thou/uL (1.20-3.40); #Monocytes 0.6 thou/uL (0.11-0.59); #Neutrophils 4.3 thou/uL (1.40-6.50); %Basophils 0.6 % (0.0-1.0); %Lymphocytes 17.8 % (21.0-51.0); %Monocytes 10.1 % (0.0-10.0); %Neutrophils 69.5 % (42.0-75.0); Mean Corpuscular HGB CONC 31.4 g/dL (32.0-36.0); Mean Corpuscular Hemoglobin 28.9 pg (27.0-31.0); Mean Corpuscular Volume 92.2 fl (78.0-98.0); Mean Platelet Volume 6.7 fL (7.4-10.4); Platelet Count 319 10x3/uL (130-400); RBC Distribution Width 16.7 % (11.5-14.5); White Blood Cell (WBC) Count 6.2 10x3/uL (4.8-10.8)
[2022-10-11 18:07] LABS: ALT (SGPT) 7 U/L (8-55); AST (SGOT) 13 U/L (5-34); Albumin 3.1 g/dL (3.4-4.8); Alkaline Phosphatase 78 U/L (40-110); Anion Gap 12 mmol/L (10-20); BUN (Urea Nitrogen) 16 mg/dL (9.8-20.1); Bilirubin, Total 0.4 mg/dL (0.2-1.2); Calc. Creatinine Clearance 0 mL/min (70-130); Calcium 8.6 mg/dL (7.8-10.44); Carbon Dioxide 34 mmol/L (23-31); Chloride 99 mmol/L (98-107); Estimated GFR 91; Globulin 2.9 g/dL (2.4-3.5); Glucose 105 mg/dL (83-110); Potassium 3.9 mmol/L (3.5-5.1); Sodium 141 mmol/L (136-145)
[2022-10-11] MEDS ORDERED: Ondansetron PF 4 MG/2 ML Vial ONE (18:24)
[2022-10-11] MEDS ORDERED: Morphine 4 MG/ML VIAL ONE (18:24)
[2022-10-11] MEDS ORDERED: Dextrose 50% Abboject 50 ML SYRINGE SLOW IVP PRN (18:30)
[2022-10-11] MEDS ORDERED: Acetaminophen 325 MG TAB PO PRN (18:30)
[2022-10-11] MEDS ORDERED: TETANUS, DIPHTHERIA TOX,ADULT (TDVAX) 0.5 ML VIAL IM ONE (18:30)
[2022-10-11] MEDS ORDERED: Ipratropium/Albuterol 3 ML NEB NEB PRN ×2 (18:30→18:43)
[2022-10-11] MEDS ORDERED: Insulin Regular 300 UNITS/3 ML VIAL SC PRN (18:30)
[2022-10-11] MEDS ORDERED: Morphine 2 MG/ML VIAL SLOW IVP PRN (18:30)
[2022-10-11] MEDS ORDERED: Dextrose 5% in Water 1,000 ML IV PRN (18:30)
[2022-10-11] MEDS ORDERED: ALPRAZolam 1 MG TAB PO PRN (18:43)
[2022-10-11] MEDS: Famotidine/PF 20 mg/2ml Vial SLOW IVP SCH (21:13)
[2022-10-11] MEDS: Metoprolol Tartrate 50 MG TAB PO SCH (21:13)
[2022-10-12 06:36] LABS: #Eosinphils 0.1 thou/uL (0.0-0.7); #Lymphocytes 0.8 thou/uL (1.20-3.40); #Monocytes 0.4 thou/uL (0.11-0.59); %Basophils 0.3 % (0.0-1.0); %Eosinophils 1.1 % (0.0-10.0); %Lymphocytes 9.6 % (21.0-51.0); %Monocytes 4.7 % (0.0-10.0); %Neutrophils 84.3 % (42.0-75.0); Mean Corpuscular HGB CONC 29.8 g/dL (32.0-36.0); Mean Corpuscular Hemoglobin 28.1 pg (27.0-31.0); Mean Corpuscular Volume 94.2 fl (78.0-98.0); Mean Platelet Volume 6.7 fL (7.4-10.4); Platelet Count 374 10x3/uL (130-400); RBC Distribution Width 16.9 % (11.5-14.5); Red Blood Cell (RBC) Count 3.57 mill/uL (4.20-5.40); White Blood Cell (WBC) Count 8.3 10x3/uL (4.8-10.8)
[2022-10-12 06:53] LABS: Phosphorus 4.6 mg/dL (2.3-4.7)
[2022-10-12 06:57] LABS: Anion Gap 12 mmol/L (10-20); BUN (Urea Nitrogen) 17 mg/dL (9.8-20.1); Calc. Creatinine Clearance 111 mL/min (70-130); Calcium 9.2 mg/dL (7.8-10.44); Carbon Dioxide 37 mmol/L (23-31); Chloride 99 mmol/L (98-107); Estimated GFR 90; Glucose 159 mg/dL (83-110); Magnesium 2.1 mg/dL (1.6-2.6); Potassium 4.5 mmol/L (3.5-5.1); Sodium 143 mmol/L (136-145)
[2022-10-12] MEDS: Mometasone/Formoterol 200/5 60 PUFF INH SCH ×2 (07:19→19:16)
[2022-10-12] MEDS: Famotidine/PF 20 mg/2ml Vial SLOW IVP SCH ×2 (09:26→20:24)
[2022-10-12] MEDS: Sertraline 25 MG TAB PO SCH ×2 (09:26→11:14)
[2022-10-12] MEDS: Metoprolol Tartrate 50 MG TAB PO SCH ×3 (09:26→22:25)
[2022-10-12] MEDS ORDERED: Furosemide 20 MG TAB PO SCH ×2 (10:30)
[2022-10-12] MEDS ORDERED: Iopamidol-370 76% 500 ML MDV (1 ML CHARGE) ONE (11:11)
[2022-10-12] MEDS ORDERED: Furosemide 20 MG/2 ML VIAL SLOW IVP SCH (11:15)
[2022-10-12 12:16] LABS: Bacteria/HPF None Seen HPF (None Seen); Bilirubin Negative (Negative); Blood, Urine Negative (Negative); CAUTI Indications for Culture Alt mental st,lethar; Clarity Clear (Clear); Glucose, Urine (Dipstick) Normal (Negative); Ketone, Urine Negative (Negative); Leukocyte Negative Leu/uL (Negative); Nitrite Negative (Negative); Protein, Urine (Dipstick) 20 mg/dL (Neg-Trace); RBC/HPF 0-3 HPF (0-3); Specific Gravity, Urine 1.016 (1.002-1.036); Squamous Epithelial 0-3 HPF (0-3); Urobilinogen Normal mg/dL (Less than 2); WBC/HPF 0-3 HPF (0-3); pH, Urine 5.5 (5.0-9.0)
[2022-10-12 12:20] LABS: Urine Culture Reflex No No
[2022-10-12] MEDS ORDERED: Piperacillin/Tazobactam 3.375 GM in Sodium Chloride 0.9% 100 ML IVPB SCH (14:45)
[2022-10-12 16:18] LABS: Actual Bicarbonate (HCO3a) 43.8 mEq/L (22-28); Base Excess (BEa) 14.4 mEq/L (-2.0 to +3.0); Calcium, Ionized (arterial) 1.15 mmol/L (1.12-1.30); Carboxyhemoglobin (COHb) 0.8 gm% (0.0-3.0); Hemoglobin (Hb) 9.8 g/dL (12.0-16.0); O2 Tension (PaO2), arterial 80.3 mmHg (> 70.0); Potassium - ABG Lab 3.73 mmol/L (3.70-5.30)
[2022-10-12 16:23] LABS: Puncture Site Right Radial
[2022-10-12 16:24] LABS: ALV-art Gradient 161.325 mmHg (0-20)
[2022-10-12] MEDS ORDERED: Succinylcholine 200 MG/10 ml SYRINGE FS SCH (16:45)
[2022-10-12] MEDS ORDERED: Succinylcholine Chloride 100 MG/5 ML SYRINGE FS ONE (16:47)
[2022-10-12] MEDS ORDERED: Vecuronium 10 MG VIAL ONE (16:57)
[2022-10-12] MEDS ORDERED: Sterile Water 0 ML ONE (16:58)
[2022-10-12] MEDS ORDERED: FENTANYL 500 MCG/10 ML VIAL 2,000 MCG in Sodium Chloride 0.9% 60 ML IV PRN (17:09)
[2022-10-12] MEDS ORDERED: Midazolam HCl 2 mg/2 ml Vial SLOW IVP SCH (17:15)
[2022-10-12] MEDS ORDERED: Dexmedetomidine In 0.9 % NaCl 100 ML IVPB SCH (17:15)
[2022-10-12] MEDS: Sodium Chloride 0.9% 1,000 ML IV SCH (18:30)
[2022-10-12] MEDS ORDERED: Propofol 1,000 MG/100 ML VIAL IV ONE (18:44)
[2022-10-12] MEDS ORDERED: Fentanyl CADD 100 ML ONE (20:11)
[2022-10-12] MEDS: Fentanyl CADD 100 ML IV SCH (20:19)
[2022-10-12 21:06] LABS: Actual Bicarbonate (HCO3a) 37.2 mEq/L (22-28); Base Excess (BEa) 12.2 mEq/L (-2.0 to +3.0); CO2 Tension 51.8 mmHg (35.0-45.0); Calcium, Ionized (arterial) 1.12 mmol/L (1.12-1.30); Carboxyhemoglobin (COHb) 0.5 gm% (0.0-3.0); Hemoglobin (Hb) 8.5 g/dL (12.0-16.0); O2 Tension (PaO2), arterial 73.6 mmHg (> 70.0); Potassium - ABG Lab 3.59 mmol/L (3.70-5.30); pH, Arterial 7.47 (7.35-7.45)
[2022-10-12 21:07] LABS: Puncture Site RRA
[2022-10-13] MEDS: Piperacillin/Tazobactam 3.375 GM in Sodium Chloride 0.9% 100 ML IVPB SCH ×4 (00:19→23:20)
[2022-10-13] MEDS: Sodium Chloride 0.9% 1,000 ML IV SCH ×2 (00:37→11:01)
[2022-10-13 04:50] LABS: #Basophils 0.1 thou/uL (0.0-0.2); #Eosinphils 0.1 thou/uL (0.0-0.7); #Lymphocytes 1.1 thou/uL (1.20-3.40); #Monocytes 0.4 thou/uL (0.11-0.59); #Neutrophils 3.7 thou/uL (1.40-6.50); %Eosinophils 1.3 % (0.0-10.0); %Lymphocytes 20.8 % (21.0-51.0); %Monocytes 7.9 % (0.0-10.0); Hemoglobin 8.3 g/dL (12.0-16.0); Mean Corpuscular HGB CONC 31.5 g/dL (32.0-36.0); Mean Corpuscular Hemoglobin 29.1 pg (27.0-31.0); Mean Corpuscular Volume 92.5 fl (78.0-98.0); Platelet Count 261 10x3/uL (130-400); RBC Distribution Width 16.2 % (11.5-14.5); Red Blood Cell (RBC) Count 2.84 mill/uL (4.20-5.40); White Blood Cell (WBC) Count 5.3 10x3/uL (4.8-10.8)
[2022-10-13 05:10] LABS: Anion Gap 11 mmol/L (10-20); BUN (Urea Nitrogen) 12 mg/dL (9.8-20.1); Calc. Creatinine Clearance 128 mL/min (70-130); Calcium 8.2 mg/dL (7.8-10.44); Carbon Dioxide 34 mmol/L (23-31); Chloride 100 mmol/L (98-107); Estimated GFR 93; Glucose 122 mg/dL (83-110); Magnesium 1.9 mg/dL (1.6-2.6); Phosphorus 1.2 mg/dL (2.3-4.7); Potassium 3.3 mmol/L (3.5-5.1); Sodium 142 mmol/L (136-145)
[2022-10-13] MEDS: Mometasone/Formoterol 200/5 60 PUFF INH SCH ×2 (07:06→19:31)
[2022-10-13] MEDS ORDERED: Potassium Phosphate 30 MMOL in Sodium Chloride 0.9% 250 ML 250 ML IVPB SCH ×2 (07:15→16:30)
[2022-10-13 07:17] LABS: Actual Bicarbonate (HCO3a) 38.1 mEq/L (22-28); Base Excess (BEa) 12.7 mEq/L (-2.0 to +3.0); CO2 Tension 52.1 mmHg (35.0-45.0); Carboxyhemoglobin (COHb) 0.7 gm% (0.0-3.0); Hemoglobin (Hb) 12.5 g/dL (12.0-16.0); O2 Tension (PaO2), arterial 73.8 mmHg (> 70.0); pH, Arterial 7.48 (7.35-7.45)
[2022-10-13 07:34] LABS: ALV-art Gradient 217.575 mmHg (0-20); Puncture Site RRA
[2022-10-13] MEDS ORDERED: Calcium Chloride 1 GM/10 ML Abboject SYRINGE IVP SCH (07:45)
[2022-10-13] MEDS ORDERED: Fentanyl CADD 100 ML ONE (08:29)
[2022-10-13] MEDS: Fentanyl CADD 100 ML IV SCH (08:36)
[2022-10-13] MEDS: Famotidine/PF 20 mg/2ml Vial SLOW IVP SCH ×2 (08:42→20:15)
[2022-10-13] MEDS: Saccharomyces boulardii 250 MG CAP PO SCH (08:43)
[2022-10-13] MEDS: Sertraline 25 MG TAB PO SCH (08:43)
[2022-10-13] MEDS: Metoprolol Tartrate 50 MG TAB PO SCH ×2 (08:43→20:15)
[2022-10-13] MEDS ORDERED: traZODone HCl 50 MG TAB PO SCH (09:00)
[2022-10-13] MEDS ORDERED: Furosemide 20 MG TAB PO SCH (09:00)
[2022-10-13] MEDS: ALPRAZolam 1 MG TAB PO SCH ×3 (09:51→20:15)
[2022-10-13] MEDS: Ipratropium/Albuterol 3 ML NEB NEB SCH ×4 (10:34→21:52)
[2022-10-13] MEDS ORDERED: Sodium Chloride 0.9% 1,000 ML IV SCH (15:26)
[2022-10-13] MEDS ORDERED: Acetaminophen/Codeine 30-300mg Tablet PO SCH ×2 (15:30→18:00)
[2022-10-13 16:06] LABS: Anion Gap 15 mmol/L (10-20); BUN (Urea Nitrogen) 13 mg/dL (9.8-20.1); Calc. Creatinine Clearance 105 mL/min (70-130); Calcium 8.1 mg/dL (7.8-10.44); Carbon Dioxide 31 mmol/L (23-31); Chloride 100 mmol/L (98-107); Estimated GFR 88; Glucose 158 mg/dL (83-110); Magnesium 1.8 mg/dL (1.6-2.6); Phosphorus 2.5 mg/dL (2.3-4.7); Potassium 3.6 mmol/L (3.5-5.1); Sodium 142 mmol/L (136-145)
[2022-10-13] MEDS ORDERED: Magnesium 2 GM/50 ML(in water) 2 GM in Premix Bag 1 BAG IVPB SCH (16:30)
[2022-10-13] MEDS: traZODone HCl 50 MG TAB PO SCH (20:15)
[2022-10-13] MEDS: Acetaminophen/Codeine 30-300mg Tablet PO SCH (23:18)
[2022-10-14] MEDS ORDERED: Melatonin 3 MG TAB PO SCH (01:00)
[2022-10-14] MEDS ORDERED: Morphine 4 MG/ML VIAL SLOW IVP SCH (01:00)
[2022-10-14] MEDS: Ipratropium/Albuterol 3 ML NEB NEB SCH ×6 (01:38→21:59)
[2022-10-14 03:39] LABS: #Basophils 0.1 thou/uL (0.0-0.2); #Eosinphils 0.2 thou/uL (0.0-0.7); #Lymphocytes 1.2 thou/uL (1.20-3.40); #Monocytes 0.5 thou/uL (0.11-0.59); %Basophils 0.9 % (0.0-1.0); %Eosinophils 3.4 % (0.0-10.0); %Lymphocytes 16.9 % (21.0-51.0); %Monocytes 7.2 % (0.0-10.0); %Neutrophils 71.7 % (42.0-75.0); Mean Corpuscular Volume 93.2 fl (78.0-98.0); Mean Platelet Volume 6.7 fL (7.4-10.4); Platelet Count 297 10x3/uL (130-400); RBC Distribution Width 16.7 % (11.5-14.5); Red Blood Cell (RBC) Count 2.85 mill/uL (4.20-5.40); White Blood Cell (WBC) Count 6.9 10x3/uL (4.8-10.8)
[2022-10-14 03:59] LABS: Anion Gap 11 mmol/L (10-20); BUN (Urea Nitrogen) 13 mg/dL (9.8-20.1); Calc. Creatinine Clearance 120 mL/min (70-130); Calcium 7.9 mg/dL (7.8-10.44); Carbon Dioxide 32 mmol/L (23-31); Chloride 101 mmol/L (98-107); Estimated GFR 92; Glucose 117 mg/dL (83-110); Phosphorus 3.8 mg/dL (2.3-4.7); Potassium 3.3 mmol/L (3.5-5.1); Sodium 141 mmol/L (136-145)
[2022-10-14] MEDS: Acetaminophen/Codeine 30-300mg Tablet PO SCH ×3 (05:42→17:31)
[2022-10-14] MEDS: Piperacillin/Tazobactam 3.375 GM in Sodium Chloride 0.9% 100 ML IVPB SCH ×2 (06:17→17:36)
[2022-10-14] MEDS: Mometasone/Formoterol 200/5 60 PUFF INH SCH ×2 (07:34→19:07)
[2022-10-14] MEDS: ALPRAZolam 1 MG TAB PO SCH ×3 (09:06→21:25)
[2022-10-14] MEDS: Famotidine/PF 20 mg/2ml Vial SLOW IVP SCH ×2 (09:06→21:22)
[2022-10-14] MEDS: Metoprolol Tartrate 50 MG TAB PO SCH ×2 (09:06→21:24)
[2022-10-14] MEDS: Saccharomyces boulardii 250 MG CAP PO SCH (09:06)
[2022-10-14] MEDS: Sertraline 25 MG TAB PO SCH (09:06)
[2022-10-14] MEDS ORDERED: Potassium Chloride 20 MEQ TAB PO SCH (11:45)
[2022-10-14] MEDS: Potassium Chloride 20 MEQ in Premix Bag 1 BAG IVPB SCH ×2 (19:20→21:25)
[2022-10-14] MEDS: Morphine 2 MG/ML VIAL SLOW IVP PRN (21:22)
[2022-10-14] MEDS: Melatonin 3 MG TAB PO SCH (21:24)
[2022-10-14] MEDS: traZODone HCl 50 MG TAB PO SCH (21:24)
[2022-10-15] MEDS: Acetaminophen/Codeine 30-300mg Tablet PO SCH ×4 (01:53→16:35)
[2022-10-15] MEDS: Cyclobenzaprine 10 MG TAB PO PRN ×2 (01:54→20:22)
[2022-10-15] MEDS: Ipratropium/Albuterol 3 ML NEB NEB SCH ×6 (02:19→22:20)
[2022-10-15 04:23] LABS: Anion Gap 8 mmol/L (10-20); BUN (Urea Nitrogen) 10 mg/dL (9.8-20.1); Calc. Creatinine Clearance 129 mL/min (70-130); Calcium 8.4 mg/dL (7.8-10.44); Carbon Dioxide 36 mmol/L (23-31); Chloride 103 mmol/L (98-107); Estimated GFR 93; Glucose 117 mg/dL (83-110); Phosphorus 3.6 mg/dL (2.3-4.7); Sodium 143 mmol/L (136-145)
[2022-10-15] MEDS: Mometasone/Formoterol 200/5 60 PUFF INH SCH ×2 (08:18→19:14)
[2022-10-15] MEDS: Saccharomyces boulardii 250 MG CAP PO SCH (10:03)
[2022-10-15] MEDS: Famotidine/PF 20 mg/2ml Vial SLOW IVP SCH ×2 (10:03→20:22)
[2022-10-15] MEDS: Sertraline 25 MG TAB PO SCH (10:03)
[2022-10-15] MEDS: Metoprolol Tartrate 50 MG TAB PO SCH ×2 (10:03→20:21)
[2022-10-15] MEDS: ALPRAZolam 1 MG TAB PO SCH ×3 (10:03→20:21)
[2022-10-15] MEDS: traZODone HCl 50 MG TAB PO SCH (20:21)
[2022-10-15] MEDS: Melatonin 3 MG TAB PO SCH (20:21)
[2022-10-16] MEDS: Acetaminophen/Codeine 30-300mg Tablet PO SCH ×4 (00:05→18:09)
[2022-10-16] MEDS: Morphine 2 MG/ML VIAL SLOW IVP PRN (01:00)
[2022-10-16] MEDS: Ipratropium/Albuterol 3 ML NEB NEB SCH ×6 (02:49→22:46)
[2022-10-16 03:48] LABS: Anion Gap 11 mmol/L (10-20); BUN (Urea Nitrogen) 9 mg/dL (9.8-20.1); Calc. Creatinine Clearance 123 mL/min (70-130); Calcium 8.6 mg/dL (7.8-10.44); Carbon Dioxide 36 mmol/L (23-31); Chloride 102 mmol/L (98-107); Estimated GFR 92; Glucose 114 mg/dL (83-110); Magnesium 2.1 mg/dL (1.6-2.6); Potassium 3.9 mmol/L (3.5-5.1); Sodium 145 mmol/L (136-145)
[2022-10-16] MEDS: Sertraline 25 MG TAB PO SCH (10:34)
[2022-10-16] MEDS: ALPRAZolam 1 MG TAB PO SCH ×2 (10:34→13:37)
[2022-10-16] MEDS: Saccharomyces boulardii 250 MG CAP PO SCH (10:34)
[2022-10-16] MEDS: Famotidine/PF 20 mg/2ml Vial SLOW IVP SCH ×2 (10:34→21:38)
[2022-10-16 11:12] LABS: CO2 Tension 91.9 mmHg (35.0-45.0)
[2022-10-16] MEDS: Mometasone/Formoterol 200/5 60 PUFF INH SCH ×2 (13:53→19:37)
[2022-10-16] MEDS: Melatonin 3 MG TAB PO SCH (21:38)
[2022-10-16] MEDS: Metoprolol Tartrate 50 MG TAB PO SCH (21:38)
[2022-10-17] MEDS: Acetaminophen/Codeine 30-300mg Tablet PO SCH ×5 (00:30→23:18)
[2022-10-17] MEDS: Ipratropium/Albuterol 3 ML NEB NEB SCH ×4 (02:30→19:19)
[2022-10-17] MEDS: traZODone HCl 50 MG TAB PO SCH ×2 (06:18→20:21)
[2022-10-17] MEDS: ALPRAZolam 1 MG TAB PO SCH ×4 (06:18→20:08)
[2022-10-17] MEDS: Mometasone/Formoterol 200/5 60 PUFF INH SCH ×2 (08:12→19:22)
[2022-10-17] MEDS: Metoprolol Tartrate 50 MG TAB PO SCH ×2 (09:16→20:21)
[2022-10-17] MEDS: Saccharomyces boulardii 250 MG CAP PO SCH (09:16)
[2022-10-17] MEDS: Sertraline 25 MG TAB PO SCH (09:17)
[2022-10-17] MEDS: Famotidine/PF 20 mg/2ml Vial SLOW IVP SCH ×2 (09:17→20:08)
[2022-10-17] MEDS ORDERED: Neomycin-Polymyxin 1 ML AMP ONE (13:30)
[2022-10-17] MEDS ORDERED: Bupivacaine PF 0.5% 30 ML VIAL ONE (13:30)
[2022-10-17] MEDS ORDERED: Bacitracin Zinc Ointment 30 gm TUBE ONE (13:30)
[2022-10-17] MEDS ORDERED: fentaNYL PF 100 MCG/2 ML SYRINGE ONE (13:39)
[2022-10-17] MEDS ORDERED: Vancomycin 1 GM/200 ML (FROZEN) BAG ONE (14:21)
[2022-10-17] MEDS ORDERED: Phenylephrine 10 MG/ML VIAL ONE (14:26)
[2022-10-17] MEDS ORDERED: Calcium Chloride 1 GM/10 ML Abboject SYRINGE ONE (14:26)
[2022-10-17] MEDS ORDERED: Rocuronium Bromide 10 MG/ML (10ML VIAL) ONE (14:26)
[2022-10-17] MEDS ORDERED: PROPOFOL 200 MG/20 ML VIAL ONE (14:26)
[2022-10-17] MEDS ORDERED: Lidocaine 1% PF 5 ML VIAL ONE (14:26)
[2022-10-17] MEDS ORDERED: ePHEDrine 50 MG/ML VIAL ONE (14:26)
[2022-10-17] MEDS ORDERED: Albumin 5% 0 ML ONE (14:47)
[2022-10-17] MEDS ORDERED: Thrombin 5000 UNITS/5 ML VIAL ONE ×2 (14:49→15:34)
[2022-10-17] MEDS ORDERED: SUGAMMADEX SODIUM 200 MG/2 ML VIAL ONE ×2 (14:52)
[2022-10-17] MEDS ORDERED: Ipratropium/Albuterol 3 ML NEB ONE (16:22)
[2022-10-17] MEDS ORDERED: fentaNYL 50 mcg/mL 1 mL Vial ONE (16:34)
[2022-10-17] MEDS ORDERED: Promethazine HCl 25 MG/ML VIAL IM PRN (16:35)
[2022-10-17] MEDS ORDERED: PACU-Morphine 4MG/ML VIAL SLOW IVP PRN (16:35)
[2022-10-17] MEDS ORDERED: Ondansetron HCl/PF 4 MG/2 ML Vial IVP PRN (16:35)
[2022-10-17] MEDS ORDERED: Ipratropium/Albuterol 3 ML NEB EZPAP ONE (16:36)
[2022-10-17] MEDS: Morphine 2 MG/ML VIAL SLOW IVP PRN (20:08)
[2022-10-17] MEDS: Melatonin 3 MG TAB PO SCH (20:20)
[2022-10-17 22:44] LABS: #Eosinphils 0.2 thou/uL (0.0-0.7); #Lymphocytes 1.2 thou/uL (1.20-3.40); #Monocytes 0.6 thou/uL (0.11-0.59); #Neutrophils 6.3 thou/uL (1.40-6.50); %Basophils 0.2 % (0.0-1.0); %Eosinophils 2.1 % (0.0-10.0); %Lymphocytes 13.9 % (21.0-51.0); %Monocytes 7.3 % (0.0-10.0); %Neutrophils 76.4 % (42.0-75.0); Hemoglobin 8.7 g/dL (12.0-16.0); Mean Corpuscular HGB CONC 31.7 g/dL (32.0-36.0); Mean Corpuscular Volume 91.5 fl (78.0-98.0); Mean Platelet Volume 7.3 fL (7.4-10.4); Platelet Count 257 10x3/uL (130-400); RBC Distribution Width 17.8 % (11.5-14.5); Red Blood Cell (RBC) Count 2.99 mill/uL (4.20-5.40); White Blood Cell (WBC) Count 8.2 10x3/uL (4.8-10.8)
[2022-10-18] MEDS: Vancomycin 1 GM in Premix Bag 1 BAG IVPB SCH ×2 (02:08→14:22)
[2022-10-18] MEDS: Acetaminophen/Codeine 30-300mg Tablet PO SCH ×4 (05:23→23:38)
[2022-10-18 06:11] LABS: #Eosinphils 0.2 thou/uL (0.0-0.7); #Lymphocytes 0.9 thou/uL (1.20-3.40); #Monocytes 0.6 thou/uL (0.11-0.59); #Neutrophils 5.2 thou/uL (1.40-6.50); %Basophils 0.3 % (0.0-1.0); %Eosinophils 2.7 % (0.0-10.0); %Lymphocytes 12.8 % (21.0-51.0); %Neutrophils 75.2 % (42.0-75.0); Hemoglobin 8.3 g/dL (12.0-16.0); Mean Corpuscular HGB CONC 30.1 g/dL (32.0-36.0); Mean Platelet Volume 6.9 fL (7.4-10.4); Platelet Count 301 10x3/uL (130-400); RBC Distribution Width 17.8 % (11.5-14.5); Red Blood Cell (RBC) Count 2.96 mill/uL (4.20-5.40)
[2022-10-18 06:27] LABS: Anion Gap 11 mmol/L (10-20); BUN (Urea Nitrogen) 10 mg/dL (9.8-20.1); Calc. Creatinine Clearance 112 mL/min (70-130); Calcium 8.8 mg/dL (7.8-10.44); Carbon Dioxide 33 mmol/L (23-31); Chloride 99 mmol/L (98-107); Estimated GFR 91; Glucose 125 mg/dL (83-110); Potassium 4.2 mmol/L (3.5-5.1); Sodium 139 mmol/L (136-145)
[2022-10-18] MEDS: Morphine 2 MG/ML VIAL SLOW IVP PRN (08:41)
[2022-10-18] MEDS: Sertraline 25 MG TAB PO SCH (09:32)
[2022-10-18] MEDS: Saccharomyces boulardii 250 MG CAP PO SCH (09:32)
[2022-10-18] MEDS: Famotidine 20 MG TAB PO SCH ×2 (09:32→21:29)
[2022-10-18] MEDS: ALPRAZolam 1 MG TAB PO SCH ×3 (09:32→21:29)
[2022-10-18] MEDS: Acetaminophen 325 MG TAB PO PRN (09:35)
[2022-10-18] MEDS: Metoprolol Tartrate 50 MG TAB PO SCH ×2 (09:44→21:29)
[2022-10-18] MEDS: Famotidine/PF 20 mg/2ml Vial SLOW IVP SCH (09:44)
[2022-10-18] MEDS: Ipratropium/Albuterol 3 ML NEB NEB SCH ×3 (10:34→18:28)
[2022-10-18] MEDS: Mometasone/Formoterol 200/5 60 PUFF INH SCH ×2 (10:36→18:31)
[2022-10-18] MEDS: traZODone HCl 50 MG TAB PO SCH (21:29)
[2022-10-18] MEDS: Melatonin 3 MG TAB PO SCH (21:29)
[2022-10-19 01:15] LABS: Vancomycin, Trough 12.5 ug/mL
[2022-10-19] MEDS: Vancomycin 1 GM in Premix Bag 1 BAG IVPB SCH ×2 (02:08→14:47)
[2022-10-19] MEDS: Acetaminophen/Codeine 30-300mg Tablet PO SCH ×3 (05:13→17:47)
[2022-10-19] MEDS: Mometasone/Formoterol 200/5 60 PUFF INH SCH ×2 (07:21→18:47)
[2022-10-19] MEDS: Ipratropium/Albuterol 3 ML NEB NEB SCH ×3 (07:21→18:47)
[2022-10-19] MEDS: Famotidine 20 MG TAB PO SCH ×2 (09:22→21:20)
[2022-10-19] MEDS: Metoprolol Tartrate 50 MG TAB PO SCH ×2 (09:23→21:20)
[2022-10-19] MEDS: Saccharomyces boulardii 250 MG CAP PO SCH (09:23)
[2022-10-19] MEDS: Sertraline 25 MG TAB PO SCH (09:23)
[2022-10-19] MEDS: ALPRAZolam 1 MG TAB PO SCH ×3 (09:23→21:19)
[2022-10-19 15:22] VITALS: BMI 34.8
[2022-10-19] MEDS: Melatonin 3 MG TAB PO SCH (21:20)
[2022-10-19] MEDS: traZODone HCl 50 MG TAB PO SCH (21:20)
[2022-10-20] MEDS: Vancomycin 1 GM in Premix Bag 1 BAG IVPB SCH ×2 (01:34→14:20)
[2022-10-20] MEDS: Acetaminophen/Codeine 30-300mg Tablet PO SCH ×3 (01:34→13:13)
[2022-10-20] MEDS: Ipratropium/Albuterol 3 ML NEB NEB SCH ×3 (06:33→17:04)
[2022-10-20] MEDS: Mometasone/Formoterol 200/5 60 PUFF INH SCH ×3 (06:34→18:23)
[2022-10-20] MEDS: ALPRAZolam 1 MG TAB PO SCH ×4 (09:11→22:33)
[2022-10-20] MEDS: Metoprolol Tartrate 50 MG TAB PO SCH ×3 (09:35→22:37)
[2022-10-20] MEDS: Famotidine 20 MG TAB PO SCH ×3 (09:35→22:36)
[2022-10-20] MEDS: Sertraline 25 MG TAB PO SCH (09:39)
[2022-10-20] MEDS: Saccharomyces boulardii 250 MG CAP PO SCH (09:39)
[2022-10-20] MEDS ORDERED: Mineral Oil Sterile 10 ML VIAL ONE (09:56)
[2022-10-20] MEDS ORDERED: Bacitracin Zinc Ointment 30 gm TUBE ONE (09:56)
[2022-10-20] MEDS ORDERED: Thrombin 5000 UNITS/5 ML VIAL ONE (09:56)
[2022-10-20] MEDS ORDERED: Neomycin-Polymyxin 1 ML AMP ONE (09:56)
[2022-10-20] MEDS ORDERED: Bupivacaine PF 0.5% 30 ML VIAL ONE (09:56)
[2022-10-20] MEDS ORDERED: Tobramycin Sulfate 1.2 GM VIAL ONE (10:32)
[2022-10-20] MEDS ORDERED: fentaNYL 50 mcg/mL 1 mL Vial ONE (10:59)
[2022-10-20] MEDS ORDERED: Dexamethasone 20 MG/5 ML VIAL ONE (12:20)
[2022-10-20] MEDS ORDERED: Rocuronium Bromide 10 MG/ML (10ML VIAL) ONE (12:20)
[2022-10-20] MEDS ORDERED: Lidocaine 1% PF 5 ML VIAL ONE (12:20)
[2022-10-20] MEDS ORDERED: Ondansetron PF 4 MG/2 ML Vial ONE (12:20)
[2022-10-20] MEDS ORDERED: PROPOFOL 200 MG/20 ML VIAL ONE (12:20)
[2022-10-20] MEDS ORDERED: Phenylephrine 10 MG/ML VIAL ONE (12:20)
[2022-10-20] MEDS ORDERED: SUGAMMADEX SODIUM 200 MG/2 ML VIAL ONE (12:57)
[2022-10-20] MEDS ORDERED: Morphine 4 MG/ML VIAL ONE (13:32)
[2022-10-20] MEDS ORDERED: Vancomycin 1 GM/200 ML (FROZEN) BAG ONE (13:57)
[2022-10-20] MEDS ORDERED: Promethazine HCl 25 MG/ML VIAL IM/IV PRN (14:00)
[2022-10-20] MEDS ORDERED: Ondansetron HCl/PF 4 MG/2 ML Vial IVP PRN (14:00)
[2022-10-20] MEDS ORDERED: PACU-Morphine 4MG/ML VIAL SLOW IVP PRN (14:00)
[2022-10-20] MEDS ORDERED: Morphine Sulfate 2 MG/ML SYRINGE SLOW IVP PRN (14:00)
[2022-10-20 19:54] LABS: #Eosinphils 0.1 thou/uL (0.0-0.7); #Lymphocytes 0.4 thou/uL (1.20-3.40); #Monocytes 0.2 thou/uL (0.11-0.59); #Neutrophils 7.1 thou/uL (1.40-6.50); %Basophils 0.3 % (0.0-1.0); %Eosinophils 0.8 % (0.0-10.0); %Lymphocytes 5.2 % (21.0-51.0); %Monocytes 2.6 % (0.0-10.0); %Neutrophils 91.2 % (42.0-75.0); Hemoglobin 7.8 g/dL (12.0-16.0); Mean Corpuscular HGB CONC 29.6 g/dL (32.0-36.0); Mean Corpuscular Hemoglobin 28.2 pg (27.0-31.0); Mean Corpuscular Volume 95.3 fl (78.0-98.0); Mean Platelet Volume 6.9 fL (7.4-10.4); Platelet Count 302 10x3/uL (130-400); RBC Distribution Width 17.1 % (11.5-14.5); Red Blood Cell (RBC) Count 2.77 mill/uL (4.20-5.40); White Blood Cell (WBC) Count 7.8 10x3/uL (4.8-10.8)
[2022-10-20 20:23] LABS: Anisocytosis SLIGHT = 6-15 cells (100X) (0-5/hpf); Hypochromia SLIGHT = 6-15 cells (100X) (0-5/hpf); MDiff Complete? YES; Platelet Morphology Comment Appears Adequate; Polychromasia MODERATE = 3-4 cells (100X) (0-2/hpf); Stomatocytes MODERATE= 6-15 cells (100X) (0-1/hpf)
[2022-10-20] MEDS: Melatonin 3 MG TAB PO SCH ×2 (22:23→22:36)
[2022-10-20] MEDS: Acetaminophen 325 MG TAB PO PRN (22:24)
[2022-10-20] MEDS: traZODone HCl 50 MG TAB PO SCH ×2 (22:25→22:37)
[2022-10-21] MEDS: Vancomycin 1 GM in Premix Bag 1 BAG IVPB SCH (02:27)
[2022-10-21] MEDS: Morphine 2 MG/ML VIAL SLOW IVP PRN (05:21)
[2022-10-21 05:43] LABS: #Lymphocytes 0.7 thou/uL (1.20-3.40); #Monocytes 0.6 thou/uL (0.11-0.59); #Neutrophils 5.3 thou/uL (1.40-6.50); %Basophils 0.1 % (0.0-1.0); %Eosinophils 0.6 % (0.0-10.0); %Lymphocytes 10.8 % (21.0-51.0); %Monocytes 8.8 % (0.0-10.0); %Neutrophils 79.7 % (42.0-75.0); Hemoglobin 6.5 g/dL (12.0-16.0); Mean Corpuscular HGB CONC 30.9 g/dL (32.0-36.0); Mean Corpuscular Hemoglobin 28.5 pg (27.0-31.0); Mean Corpuscular Volume 92.5 fl (78.0-98.0); Mean Platelet Volume 6.8 fL (7.4-10.4); Platelet Count 233 10x3/uL (130-400); RBC Distribution Width 16.9 % (11.5-14.5); Red Blood Cell (RBC) Count 2.26 mill/uL (4.20-5.40); White Blood Cell (WBC) Count 6.6 10x3/uL (4.8-10.8)
[2022-10-21 06:02] LABS: BUN (Urea Nitrogen) 11 mg/dL (9.8-20.1); Calc. Creatinine Clearance 114 mL/min (70-130); Calcium 8.5 mg/dL (7.8-10.44); Estimated GFR 91; Glucose 143 mg/dL (83-110); Magnesium 2.1 mg/dL (1.6-2.6); Phosphorus 2.8 mg/dL (2.3-4.7)
[2022-10-21 06:12] LABS: Anion Gap 14 mmol/L (10-20); Carbon Dioxide 35 mmol/L (23-31); Chloride 98 mmol/L (98-107); Sodium 143 mmol/L (136-145)
[2022-10-21] MEDS: Ipratropium/Albuterol 3 ML NEB NEB SCH ×3 (07:18→18:44)
[2022-10-21] MEDS: Mometasone/Formoterol 200/5 60 PUFF INH SCH ×2 (07:24→18:47)
[2022-10-21] MEDS: Metoprolol Tartrate 50 MG TAB PO SCH ×2 (08:26→21:14)
[2022-10-21] MEDS: ALPRAZolam 1 MG TAB PO SCH ×3 (08:43→21:14)
[2022-10-21] MEDS: Famotidine 20 MG TAB PO SCH ×3 (08:44→21:15)
[2022-10-21] MEDS: Sertraline 25 MG TAB PO SCH (08:44)
[2022-10-21] MEDS: Saccharomyces boulardii 250 MG CAP PO SCH ×2 (08:44→11:01)
[2022-10-21] MEDS ORDERED: Ketamine 50 MG/ML (10ML VIAL) ONE (09:16)
[2022-10-21] MEDS ORDERED: fentaNYL 50 mcg/mL 1 mL Vial ONE (09:16)
[2022-10-21] MEDS ORDERED: Lidocaine 1% PF 5 ML VIAL ONE (09:28)
[2022-10-21] MEDS ORDERED: PROPOFOL 200 MG/20 ML VIAL ONE (09:28)
[2022-10-21 13:21] LABS: Vancomycin, Trough 18.7 ug/mL
[2022-10-21] MEDS ORDERED: Vancomycin HCl 750 MG in Sodium Chloride 0.9% 250 ML 250 ML IVPB SCH (14:00)
[2022-10-21] MEDS: Acetaminophen/Codeine 30-300mg Tablet PO PRN (18:12)
[2022-10-21] MEDS: Melatonin 3 MG TAB PO SCH (21:14)
[2022-10-21] MEDS: traZODone HCl 50 MG TAB PO SCH (21:15)
[2022-10-21] MEDS: diphenhydrAMINE 25 MG CAP PO PRN (23:10)
[2022-10-21] MEDS: Cyclobenzaprine 10 MG TAB PO PRN (23:49)
[2022-10-22] MEDS: diphenhydrAMINE 25 MG CAP PO PRN ×2 (05:58→18:06)
[2022-10-22] MEDS: Vancomycin HCl 750 MG in Sodium Chloride 0.9% 250 ML 250 ML IVPB SCH ×2 (05:59→18:07)
[2022-10-22 06:26] LABS: #Eosinphils 0.4 thou/uL (0.0-0.7); #Lymphocytes 1.1 thou/uL (1.20-3.40); #Monocytes 0.7 thou/uL (0.11-0.59); #Neutrophils 4.3 thou/uL (1.40-6.50); %Basophils 0.1 % (0.0-1.0); %Eosinophils 6.1 % (0.0-10.0); %Lymphocytes 17.3 % (21.0-51.0); %Monocytes 10.4 % (0.0-10.0); %Neutrophils 66.1 % (42.0-75.0); Hemoglobin 8.5 g/dL (12.0-16.0); Mean Corpuscular HGB CONC 31.5 g/dL (32.0-36.0); Mean Corpuscular Hemoglobin 29.2 pg (27.0-31.0); Mean Corpuscular Volume 92.8 fl (78.0-98.0); Mean Platelet Volume 6.8 fL (7.4-10.4); Platelet Count 287 10x3/uL (130-400); RBC Distribution Width 16.2 % (11.5-14.5); Red Blood Cell (RBC) Count 2.91 mill/uL (4.20-5.40); White Blood Cell (WBC) Count 6.6 10x3/uL (4.8-10.8)
[2022-10-22] MEDS: Ipratropium/Albuterol 3 ML NEB NEB SCH ×3 (06:55→18:56)
[2022-10-22] MEDS: Mometasone/Formoterol 200/5 60 PUFF INH SCH ×2 (07:09→18:57)
[2022-10-22] MEDS: Metoprolol Tartrate 50 MG TAB PO SCH ×2 (07:11→20:33)
[2022-10-22] MEDS: ALPRAZolam 1 MG TAB PO SCH ×3 (07:22→20:32)
[2022-10-22] MEDS: Famotidine 20 MG TAB PO SCH ×2 (07:22→20:33)
[2022-10-22] MEDS: Saccharomyces boulardii 250 MG CAP PO SCH (07:22)
[2022-10-22] MEDS: Sertraline 25 MG TAB PO SCH ×2 (07:23→16:37)
[2022-10-22] MEDS ORDERED: Fentanyl 250 MCG/5 ML VIAL ONE (07:32)
[2022-10-22] MEDS ORDERED: Midazolam HCl 2 mg/2 ml Vial ONE (08:07)
[2022-10-22] MEDS ORDERED: SUGAMMADEX SODIUM 200 MG/2 ML VIAL ONE ×2 (08:07→08:08)
[2022-10-22] MEDS ORDERED: Lidocaine 4% Topical Sol 50 ML BOT ONE (08:11)
[2022-10-22] MEDS ORDERED: Ketamine 50 MG/ML (10ML VIAL) ONE (08:11)
[2022-10-22] MEDS ORDERED: Thrombin 5000 UNITS/5 ML VIAL ONE ×2 (08:21→09:16)
[2022-10-22] MEDS ORDERED: Neomycin-Polymyxin 1 ML AMP ONE (08:21)
[2022-10-22] MEDS ORDERED: Mineral Oil Sterile 10 ML VIAL ONE ×2 (08:21→09:42)
[2022-10-22] MEDS ORDERED: Bacitracin Zinc Ointment 30 gm TUBE ONE (08:21)
[2022-10-22] MEDS ORDERED: Bupivacaine PF 0.5% 30 ML VIAL ONE (08:21)
[2022-10-22] MEDS ORDERED: PROPOFOL 200 MG/20 ML VIAL ONE (08:36)
[2022-10-22] MEDS ORDERED: NEOSTIGMINE 3 MG/3 ML SYR 3 MG/3 ML SYRINGE ONE (08:36)
[2022-10-22] MEDS ORDERED: Rocuronium Bromide 10 MG/ML (10ML VIAL) ONE (08:36)
[2022-10-22] MEDS ORDERED: Lidocaine 1% PF 5 ML VIAL ONE (08:36)
[2022-10-22] MEDS ORDERED: Dexamethasone 20 MG/5 ML VIAL ONE (08:36)
[2022-10-22] MEDS ORDERED: Ondansetron PF 4 MG/2 ML Vial ONE ×3 (08:36→09:21)
[2022-10-22] MEDS ORDERED: Glycopyrrolate 0.2 MG/ML 5 ML SYRINGE ONE ×2 (08:36)
[2022-10-22] MEDS ORDERED: Albuterol HFA (OR) 200 PUFF INH ONE (09:45)
[2022-10-22] MEDS ORDERED: Ipratropium/Albuterol 3 ML NEB ONE (10:33)
[2022-10-22] MEDS ORDERED: Furosemide 20 MG/2 ML VIAL ONE (10:56)
[2022-10-22 12:02] LABS: #Eosinphils 0.2 thou/uL (0.0-0.7); #Lymphocytes 0.7 thou/uL (1.20-3.40); #Monocytes 0.4 thou/uL (0.11-0.59); #Neutrophils 5.8 thou/uL (1.40-6.50); %Basophils 0.5 % (0.0-1.0); %Eosinophils 2.5 % (0.0-10.0); %Lymphocytes 10.3 % (21.0-51.0); %Neutrophils 81.7 % (42.0-75.0); Hemoglobin 10.1 g/dL (12.0-16.0); Mean Corpuscular HGB CONC 31.4 g/dL (32.0-36.0); Mean Corpuscular Hemoglobin 29.3 pg (27.0-31.0); Mean Corpuscular Volume 93.6 fl (78.0-98.0); Platelet Count 310 10x3/uL (130-400); RBC Distribution Width 16.7 % (11.5-14.5); Red Blood Cell (RBC) Count 3.42 mill/uL (4.20-5.40)
[2022-10-22 12:22] LABS: Anion Gap 13 mmol/L (10-20); BUN (Urea Nitrogen) 10 mg/dL (9.8-20.1); Calc. Creatinine Clearance 100 mL/min (70-130); Calcium 9.5 mg/dL (7.8-10.44); Carbon Dioxide 36 mmol/L (23-31); Chloride 99 mmol/L (98-107); Estimated GFR 85; Glucose 168 mg/dL (83-110); Phosphorus 3.3 mg/dL (2.3-4.7); Sodium 144 mmol/L (136-145)
[2022-10-22] MEDS ORDERED: Azithromycin 250 MG TAB PO SCH (19:30)
[2022-10-22] MEDS: Melatonin 3 MG TAB PO SCH (20:32)
[2022-10-22] MEDS: traZODone HCl 50 MG TAB PO SCH (20:32)
[2022-10-22] MEDS: cefTRIAXone\\ROCEPHIN 2 GM in Sodium Chloride 0.9% 100 ML IVPB SCH (20:33)
[2022-10-23] MEDS: diphenhydrAMINE 25 MG CAP PO PRN ×2 (05:23→18:21)
[2022-10-23] MEDS: Vancomycin HCl 750 MG in Sodium Chloride 0.9% 250 ML 250 ML IVPB SCH ×2 (05:23→18:21)
[2022-10-23 05:36] LABS: Vancomycin, Trough 14.3 ug/mL
[2022-10-23] MEDS: Mometasone/Formoterol 200/5 60 PUFF INH SCH ×2 (07:25→18:59)
[2022-10-23] MEDS: Ipratropium/Albuterol 3 ML NEB NEB SCH ×3 (07:25→19:05)
[2022-10-23] MEDS ORDERED: Furosemide 20 MG/2 ML VIAL SLOW IVP SCH (08:30)
[2022-10-23] MEDS: Sertraline 25 MG TAB PO SCH (08:48)
[2022-10-23] MEDS: Azithromycin 250 MG TAB PO SCH (08:48)
[2022-10-23] MEDS: Saccharomyces boulardii 250 MG CAP PO SCH (08:48)
[2022-10-23] MEDS: Famotidine 20 MG TAB PO SCH ×2 (08:48→20:31)
[2022-10-23] MEDS: Metoprolol Tartrate 50 MG TAB PO SCH ×2 (08:48→20:34)
[2022-10-23] MEDS: ALPRAZolam 1 MG TAB PO SCH ×3 (08:48→20:31)
[2022-10-23] MEDS: Acetaminophen/Codeine 30-300mg Tablet PO PRN (13:38)
[2022-10-23] MEDS ORDERED: acetaZOLAMIDE Sodium 500 mg Vial IVP SCH (18:00)
[2022-10-23] MEDS: AcetaZOLAMIDE 250 MG TAB PO SCH (20:31)
[2022-10-23] MEDS: traZODone HCl 50 MG TAB PO SCH (20:31)
[2022-10-23] MEDS: guaiFENesin ER 600 MG TAB PO SCH (20:31)
[2022-10-23] MEDS: Melatonin 3 MG TAB PO SCH (20:31)
[2022-10-23] MEDS: cefTRIAXone\\ROCEPHIN 2 GM in Sodium Chloride 0.9% 100 ML IVPB SCH (20:31)
[2022-10-24] MEDS: diphenhydrAMINE 25 MG CAP PO PRN ×2 (05:14→16:59)
[2022-10-24] MEDS: Vancomycin HCl 750 MG in Sodium Chloride 0.9% 250 ML 250 ML IVPB SCH ×3 (05:14→19:04)
[2022-10-24 06:21] LABS: #Basophils 0.1 thou/uL (0.0-0.2); #Eosinphils 0.2 thou/uL (0.0-0.7); #Lymphocytes 1.4 thou/uL (1.20-3.40); #Monocytes 0.4 thou/uL (0.11-0.59); #Neutrophils 4.2 thou/uL (1.40-6.50); %Eosinophils 3.5 % (0.0-10.0); %Lymphocytes 22.4 % (21.0-51.0); %Monocytes 6.8 % (0.0-10.0); %Neutrophils 66.4 % (42.0-75.0); Mean Corpuscular HGB CONC 28.6 g/dL (32.0-36.0); Mean Corpuscular Hemoglobin 27.8 pg (27.0-31.0); Mean Corpuscular Volume 97.3 fl (78.0-98.0); Mean Platelet Volume 7.2 fL (7.4-10.4); Platelet Count 317 10x3/uL (130-400); RBC Distribution Width 16.6 % (11.5-14.5); Red Blood Cell (RBC) Count 2.88 mill/uL (4.20-5.40); White Blood Cell (WBC) Count 6.3 10x3/uL (4.8-10.8)
[2022-10-24 06:50] LABS: Anion Gap 12 mmol/L (10-20); Carbon Dioxide 36 mmol/L (23-31); Chloride 99 mmol/L (98-107); Potassium 3.5 mmol/L (3.5-5.1); Sodium 143 mmol/L (136-145)
[2022-10-24 06:53] LABS: BUN (Urea Nitrogen) 21 mg/dL (9.8-20.1); Calc. Creatinine Clearance 100 mL/min (70-130); Calcium 8.8 mg/dL (7.8-10.44); Estimated GFR 85; Glucose 102 mg/dL (83-110); Phosphorus 4.3 mg/dL (2.3-4.7)
[2022-10-24] MEDS ORDERED: Potassium Chloride 20 MEQ TAB PO SCH (07:15)
[2022-10-24] MEDS: Ipratropium/Albuterol 3 ML NEB NEB SCH (07:39)
[2022-10-24] MEDS: Mometasone/Formoterol 200/5 60 PUFF INH SCH ×2 (07:40→18:25)
[2022-10-24] MEDS ORDERED: Furosemide 20 MG TAB PO SCH (09:00)
[2022-10-24] MEDS: Azithromycin 250 MG TAB PO SCH (09:20)
[2022-10-24] MEDS: Sertraline 25 MG TAB PO SCH (09:20)
[2022-10-24] MEDS: Saccharomyces boulardii 250 MG CAP PO SCH (09:21)
[2022-10-24] MEDS: AcetaZOLAMIDE 250 MG TAB PO SCH ×2 (09:21→21:15)
[2022-10-24] MEDS: guaiFENesin ER 600 MG TAB PO SCH ×2 (09:21→21:15)
[2022-10-24] MEDS: Metoprolol Tartrate 50 MG TAB PO SCH ×2 (09:21→21:15)
[2022-10-24] MEDS: ALPRAZolam 1 MG TAB PO SCH ×3 (09:22→21:15)
[2022-10-24] MEDS: Albuterol 200 PUFF (6.7GM INHALER) INH SCH ×2 (13:09→18:24)
[2022-10-24 17:50] LABS: Vancomycin, Trough 19.5 ug/mL
[2022-10-24] MEDS ORDERED: Vancomycin HCl 500 MG in Sodium Chloride 0.9% 100 ML IVPB SCH (18:00)
[2022-10-24] MEDS: cefTRIAXone\\ROCEPHIN 2 GM in Sodium Chloride 0.9% 100 ML IVPB SCH (21:14)
[2022-10-24] MEDS: Melatonin 3 MG TAB PO SCH (21:15)
[2022-10-24] MEDS: traZODone HCl 50 MG TAB PO SCH (21:15)
[2022-10-25] MEDS: Vancomycin HCl 750 MG in Sodium Chloride 0.9% 250 ML 250 ML IVPB SCH ×2 (05:37→17:32)
[2022-10-25] MEDS: diphenhydrAMINE 25 MG CAP PO PRN (05:37)
[2022-10-25] MEDS: Mometasone/Formoterol 200/5 60 PUFF INH SCH ×2 (06:56→18:36)
[2022-10-25] MEDS: Albuterol 200 PUFF (6.7GM INHALER) INH SCH ×3 (06:56→18:36)
[2022-10-25 07:41] LABS: Vancomycin, Random 24.7 ug/mL (See Comment)
[2022-10-25 07:42] LABS: Anion Gap 10 mmol/L (10-20); BUN (Urea Nitrogen) 16 mg/dL (9.8-20.1); Calc. Creatinine Clearance 106 mL/min (70-130); Calcium 8.8 mg/dL (7.8-10.44); Carbon Dioxide 29 mmol/L (23-31); Chloride 104 mmol/L (98-107); Estimated GFR 89; Glucose 111 mg/dL (83-110); Magnesium 1.9 mg/dL (1.6-2.6); Phosphorus 3.8 mg/dL (2.3-4.7); Potassium 3.2 mmol/L (3.5-5.1); Sodium 140 mmol/L (136-145)
[2022-10-25] MEDS ORDERED: Magnesium 2 GM/50 ML(in water) 2 GM in Premix Bag 1 BAG IVPB SCH (08:15)
[2022-10-25] MEDS ORDERED: Potassium Chloride 20 MEQ TAB PO SCH (08:30)
[2022-10-25] MEDS ORDERED: Potassium Phosphate 30 MMOL, Magnesium Sulfate 2 GM in Sodium Chloride 0.9% 250 ML 250 ML IVPB SCH (08:45)
[2022-10-25] MEDS: ALPRAZolam 1 MG TAB PO SCH ×3 (08:47→20:18)
[2022-10-25] MEDS: Sertraline 25 MG TAB PO SCH (08:48)
[2022-10-25] MEDS: Metoprolol Tartrate 50 MG TAB PO SCH ×2 (08:48→20:19)
[2022-10-25] MEDS: Azithromycin 250 MG TAB PO SCH (08:48)
[2022-10-25] MEDS: guaiFENesin ER 600 MG TAB PO SCH ×2 (08:48→20:19)
[2022-10-25] MEDS: Saccharomyces boulardii 250 MG CAP PO SCH (08:48)
[2022-10-25] MEDS: AcetaZOLAMIDE 250 MG TAB PO SCH ×2 (08:48→20:21)
[2022-10-25 09:20] LABS: INR-International Normal Ratio 1.1; Prothrombin Time 14.1 sec (12.0-14.7)
[2022-10-25 10:41] LABS: Actual Bicarbonate (HCO3a) 31.7 mEq/L (22-28); Base Excess (BEa) 4.7 mEq/L (-2.0 to +3.0); Calcium, Ionized (arterial) 1.23 mmol/L (1.12-1.30); Carboxyhemoglobin (COHb) 1.1 gm% (0.0-3.0); Hemoglobin (Hb) 11.4 g/dL (12.0-16.0); O2 Tension (PaO2), arterial 63.5 mmHg (> 70.0); Potassium - ABG Lab 3.48 mmol/L (3.70-5.30); pH, Arterial 7.35 (7.35-7.45)
[2022-10-25 10:47] LABS: Puncture Site RRA
[2022-10-25] MEDS ORDERED: fentaNYL 50 mcg/mL 1 mL Vial ONE (10:58)
[2022-10-25] MEDS ORDERED: Sodium Bicarbonate 2.5 MEQ/5 ML VIAL ONE (10:59)
[2022-10-25] MEDS ORDERED: Midazolam HCl 2 mg/2 ml Vial ONE (10:59)
[2022-10-25 19:31] LABS: Vancomycin, Trough 17.1 ug/mL
[2022-10-25] MEDS: traZODone HCl 50 MG TAB PO SCH (20:18)
[2022-10-25] MEDS: Melatonin 3 MG TAB PO SCH (20:19)
[2022-10-25] MEDS ORDERED: Vancomycin HCl 500 MG in Sodium Chloride 0.9% 100 ML IVPB SCH (21:00)
[2022-10-25] MEDS: cefTRIAXone\\ROCEPHIN 2 GM in Sodium Chloride 0.9% 100 ML IVPB SCH (21:48)
[2022-10-26] MEDS: Vancomycin HCl 750 MG in Sodium Chloride 0.9% 250 ML 250 ML IVPB SCH ×2 (05:46→17:58)
[2022-10-26] MEDS: Mometasone/Formoterol 200/5 60 PUFF INH SCH ×2 (06:59→19:18)
[2022-10-26] MEDS: Albuterol 200 PUFF (6.7GM INHALER) INH SCH ×3 (06:59→19:16)
[2022-10-26] MEDS: ALPRAZolam 1 MG TAB PO SCH ×3 (08:12→20:45)
[2022-10-26] MEDS: Metoprolol Tartrate 50 MG TAB PO SCH ×2 (08:12→20:45)
[2022-10-26] MEDS: guaiFENesin ER 600 MG TAB PO SCH ×2 (08:13→20:45)
[2022-10-26] MEDS: Azithromycin 250 MG TAB PO SCH (08:13)
[2022-10-26] MEDS: Sertraline 25 MG TAB PO SCH (08:13)
[2022-10-26] MEDS: AcetaZOLAMIDE 250 MG TAB PO SCH ×2 (08:13→20:46)
[2022-10-26] MEDS: Saccharomyces boulardii 250 MG CAP PO SCH (08:13)
[2022-10-26] MEDS: diphenhydrAMINE 25 MG CAP PO PRN (17:58)
[2022-10-26] MEDS: traZODone HCl 50 MG TAB PO SCH (20:45)
[2022-10-26] MEDS ORDERED: Furosemide 20 MG/2 ML VIAL SLOW IVP SCH (20:45)
[2022-10-26] MEDS: Melatonin 3 MG TAB PO SCH (20:45)
[2022-10-26] MEDS: cefTRIAXone\\ROCEPHIN 2 GM in Sodium Chloride 0.9% 100 ML IVPB SCH (23:43)
[2022-10-27] MEDS ORDERED: Furosemide 20 MG/2 ML VIAL SLOW IVP SCH ×2 (01:45→19:30)
[2022-10-27 06:08] LABS: #Eosinphils 0.4 thou/uL (0.0-0.7); #Monocytes 0.5 thou/uL (0.11-0.59); #Neutrophils 5.8 thou/uL (1.40-6.50); %Basophils 0.4 % (0.0-1.0); %Eosinophils 4.8 % (0.0-10.0); %Lymphocytes 13.4 % (21.0-51.0); %Monocytes 6.9 % (0.0-10.0); %Neutrophils 74.6 % (42.0-75.0); Hemoglobin 9.8 g/dL (12.0-16.0); Mean Corpuscular HGB CONC 31.1 g/dL (32.0-36.0); Mean Corpuscular Volume 93.1 fl (78.0-98.0); Mean Platelet Volume 7.2 fL (7.4-10.4); Platelet Count 308 10x3/uL (130-400); RBC Distribution Width 16.8 % (11.5-14.5); Red Blood Cell (RBC) Count 3.39 mill/uL (4.20-5.40); White Blood Cell (WBC) Count 7.8 10x3/uL (4.8-10.8)
[2022-10-27 06:23] LABS: Vancomycin, Trough 18.2 ug/mL
[2022-10-27 06:31] LABS: Anion Gap 13 mmol/L (10-20); BUN (Urea Nitrogen) 12 mg/dL (9.8-20.1); Calc. Creatinine Clearance 101 mL/min (70-130); Calcium 8.8 mg/dL (7.8-10.44); Carbon Dioxide 26 mmol/L (23-31); Chloride 105 mmol/L (98-107); Estimated GFR 86; Glucose 132 mg/dL (83-110); Magnesium 2.1 mg/dL (1.6-2.6); Phosphorus 3.9 mg/dL (2.3-4.7); Sodium 141 mmol/L (136-145)
[2022-10-27] MEDS: Vancomycin HCl 750 MG in Sodium Chloride 0.9% 250 ML 250 ML IVPB SCH ×2 (07:40→17:49)
[2022-10-27] MEDS: diphenhydrAMINE 25 MG CAP PO PRN ×2 (07:43→17:52)
[2022-10-27] MEDS: Potassium Chloride 20 MEQ TAB PO SCH ×2 (08:27→17:49)
[2022-10-27] MEDS: ALPRAZolam 1 MG TAB PO SCH ×3 (08:27→20:58)
[2022-10-27] MEDS: Saccharomyces boulardii 250 MG CAP PO SCH (08:27)
[2022-10-27] MEDS: Metoprolol Tartrate 50 MG TAB PO SCH ×2 (08:28→20:57)
[2022-10-27] MEDS: Sertraline 25 MG TAB PO SCH (08:28)
[2022-10-27] MEDS: guaiFENesin ER 600 MG TAB PO SCH ×2 (08:28→20:57)
[2022-10-27] MEDS: Mometasone/Formoterol 200/5 60 PUFF INH SCH ×2 (08:46→18:55)
[2022-10-27] MEDS: Albuterol 200 PUFF (6.7GM INHALER) INH SCH ×3 (08:46→18:55)
[2022-10-27] MEDS: Potassium Chloride 20 MEQ in Premix Bag 1 BAG IVPB SCH ×2 (13:06→15:43)
[2022-10-27] MEDS ORDERED: Iopamidol-370 76% 500 ML MDV (1 ML CHARGE) ONE (14:27)
[2022-10-27 18:22] LABS: Anion Gap 12 mmol/L (10-20); BUN (Urea Nitrogen) 12 mg/dL (9.8-20.1); Calc. Creatinine Clearance 98 mL/min (70-130); Calcium 8.8 mg/dL (7.8-10.44); Carbon Dioxide 23 mmol/L (23-31); Chloride 107 mmol/L (98-107); Estimated GFR 83; Glucose 111 mg/dL (83-110); Phosphorus 3.3 mg/dL (2.3-4.7); Potassium 3.7 mmol/L (3.5-5.1); Sodium 138 mmol/L (136-145)
[2022-10-27] MEDS: traZODone HCl 50 MG TAB PO SCH (20:57)
[2022-10-27] MEDS: Melatonin 3 MG TAB PO SCH (20:57)
[2022-10-28] MEDS: cefTRIAXone\\ROCEPHIN 2 GM in Sodium Chloride 0.9% 100 ML IVPB SCH ×2 (00:37→22:49)
[2022-10-28] MEDS: Potassium Chloride 20 MEQ in Premix Bag 1 BAG IVPB SCH ×2 (01:39→04:07)
[2022-10-28] MEDS: Vancomycin HCl 750 MG in Sodium Chloride 0.9% 250 ML 250 ML IVPB SCH ×2 (06:00→17:21)
[2022-10-28] MEDS: diphenhydrAMINE 25 MG CAP PO PRN ×2 (06:00→17:21)
[2022-10-28] MEDS: Albuterol 200 PUFF (6.7GM INHALER) INH SCH ×3 (06:49→19:41)
[2022-10-28] MEDS: Mometasone/Formoterol 200/5 60 PUFF INH SCH ×2 (06:49→19:44)
[2022-10-28] MEDS: Potassium Chloride 20 MEQ TAB PO SCH ×2 (08:01→17:20)
[2022-10-28] MEDS: Furosemide 20 MG TAB PO SCH (08:01)
[2022-10-28] MEDS: Metoprolol Tartrate 50 MG TAB PO SCH ×2 (08:01→20:39)
[2022-10-28] MEDS: guaiFENesin ER 600 MG TAB PO SCH ×2 (08:01→20:38)
[2022-10-28] MEDS: Saccharomyces boulardii 250 MG CAP PO SCH (08:01)
[2022-10-28] MEDS: ALPRAZolam 1 MG TAB PO SCH ×3 (08:01→20:38)
[2022-10-28] MEDS: Sertraline 25 MG TAB PO SCH (08:06)
[2022-10-28] MEDS: traZODone HCl 50 MG TAB PO SCH (20:39)
[2022-10-28] MEDS: Melatonin 3 MG TAB PO SCH (20:39)
[2022-10-29] MEDS: diphenhydrAMINE 25 MG CAP PO PRN ×2 (05:37→18:01)
[2022-10-29] MEDS: Vancomycin HCl 750 MG in Sodium Chloride 0.9% 250 ML 250 ML IVPB SCH ×2 (05:38→18:02)
[2022-10-29] MEDS: Metoprolol Tartrate 50 MG TAB PO SCH ×2 (08:38→20:40)
[2022-10-29] MEDS: ALPRAZolam 1 MG TAB PO SCH ×3 (08:38→20:40)
[2022-10-29] MEDS: guaiFENesin ER 600 MG TAB PO SCH ×2 (08:39→20:40)
[2022-10-29] MEDS: Saccharomyces boulardii 250 MG CAP PO SCH (08:39)
[2022-10-29] MEDS: Potassium Chloride 20 MEQ TAB PO SCH ×3 (08:39→18:01)
[2022-10-29] MEDS: Furosemide 20 MG TAB PO SCH (08:39)
[2022-10-29] MEDS: Sertraline 25 MG TAB PO SCH (08:45)
[2022-10-29] MEDS: Albuterol 200 PUFF (6.7GM INHALER) INH SCH ×3 (09:13→19:21)
[2022-10-29] MEDS: Mometasone/Formoterol 200/5 60 PUFF INH SCH ×2 (09:14→19:21)
[2022-10-29] MEDS: Acetaminophen 325 MG TAB PO PRN ×2 (15:06→20:41)
[2022-10-29] MEDS: traZODone HCl 50 MG TAB PO SCH (20:40)
[2022-10-29] MEDS: Melatonin 3 MG TAB PO SCH (20:40)
[2022-10-30] MEDS: Acetaminophen 325 MG TAB PO PRN (03:49)
[2022-10-30] MEDS: diphenhydrAMINE 25 MG CAP PO PRN ×2 (05:42→17:41)
[2022-10-30] MEDS: Vancomycin HCl 750 MG in Sodium Chloride 0.9% 250 ML 250 ML IVPB SCH ×2 (05:42→17:43)
[2022-10-30 06:09] LABS: Anion Gap 11 mmol/L (10-20); BUN (Urea Nitrogen) 13 mg/dL (9.8-20.1); Calc. Creatinine Clearance 98 mL/min (70-130); Calcium 8.8 mg/dL (7.8-10.44); Carbon Dioxide 25 mmol/L (23-31); Chloride 110 mmol/L (98-107); Estimated GFR 83; Glucose 133 mg/dL (83-110); Magnesium 2.1 mg/dL (1.6-2.6); Phosphorus 3.4 mg/dL (2.3-4.7); Potassium 3.8 mmol/L (3.5-5.1); Sodium 142 mmol/L (136-145)
[2022-10-30] MEDS: Albuterol 200 PUFF (6.7GM INHALER) INH SCH ×3 (07:26→18:58)
[2022-10-30] MEDS: Mometasone/Formoterol 200/5 60 PUFF INH SCH ×2 (07:26→18:58)
[2022-10-30] MEDS: ALPRAZolam 1 MG TAB PO SCH ×3 (08:53→19:39)
[2022-10-30] MEDS: Saccharomyces boulardii 250 MG CAP PO SCH (08:54)
[2022-10-30] MEDS: Sertraline 25 MG TAB PO SCH (08:54)
[2022-10-30] MEDS: Metoprolol Tartrate 50 MG TAB PO SCH ×2 (08:54→19:40)
[2022-10-30] MEDS: Potassium Chloride 20 MEQ TAB PO SCH ×2 (08:54→17:43)
[2022-10-30] MEDS: guaiFENesin ER 600 MG TAB PO SCH ×2 (08:54→19:39)
[2022-10-30] MEDS: Furosemide 20 MG TAB PO SCH (08:54)
[2022-10-30] MEDS: Cyclobenzaprine 10 MG TAB PO PRN (17:41)
[2022-10-30] MEDS: Melatonin 3 MG TAB PO SCH (19:39)
[2022-10-30] MEDS: traZODone HCl 50 MG TAB PO SCH (19:39)
[2022-10-31] MEDS: diphenhydrAMINE 25 MG CAP PO PRN ×3 (00:11→18:26)
[2022-10-31] MEDS: Acetaminophen/Codeine 30-300mg Tablet PO PRN (00:11)
[2022-10-31] MEDS: Cyclobenzaprine 10 MG TAB PO PRN (00:11)
[2022-10-31] MEDS: Vancomycin HCl 750 MG in Sodium Chloride 0.9% 250 ML 250 ML IVPB SCH ×2 (05:14→18:18)
[2022-10-31] MEDS: Albuterol 200 PUFF (6.7GM INHALER) INH SCH ×3 (06:45→18:33)
[2022-10-31] MEDS: Mometasone/Formoterol 200/5 60 PUFF INH SCH ×2 (06:46→18:33)
[2022-10-31] MEDS ORDERED: Acetaminophen/Codeine 30-300mg Tablet PO PRN (08:50)
[2022-10-31] MEDS: Furosemide 20 MG TAB PO SCH (09:33)
[2022-10-31] MEDS: Metoprolol Tartrate 50 MG TAB PO SCH ×2 (09:33→21:18)
[2022-10-31] MEDS: Sertraline 25 MG TAB PO SCH (09:33)
[2022-10-31] MEDS: Saccharomyces boulardii 250 MG CAP PO SCH (09:33)
[2022-10-31] MEDS: Potassium Chloride 20 MEQ TAB PO SCH ×3 (09:34→17:45)
[2022-10-31] MEDS: ALPRAZolam 1 MG TAB PO SCH ×4 (09:34→22:02)
[2022-10-31] MEDS: guaiFENesin ER 600 MG TAB PO SCH ×2 (09:34→21:18)
[2022-10-31] MEDS ORDERED: Meperidine HCl/PF 25 MG/ML VIAL IM PRN (20:49)
[2022-10-31] MEDS ORDERED: Promethazine HCl 25 MG/ML VIAL IM PRN (20:50)
[2022-10-31] MEDS ORDERED: Bacitracin 1 PK TOP PRN (20:50)
[2022-10-31] MEDS ORDERED: Butorphanol Tartrate 1 MG/ML VIAL SLOW IVP PRN (20:51)
[2022-10-31] MEDS ORDERED: Morphine 4 MG/ML VIAL SLOW IVP PRN (20:51)
[2022-10-31] MEDS: Melatonin 3 MG TAB PO SCH (21:17)
[2022-10-31] MEDS: traZODone HCl 50 MG TAB PO SCH (21:17)
[2022-11-01] MEDS: Vancomycin HCl 750 MG in Sodium Chloride 0.9% 250 ML 250 ML IVPB SCH (05:15)
[2022-11-01] MEDS ORDERED: ALPRAZolam 1 MG TAB PO PRN (05:18)
[2022-11-01 05:27] LABS: Vancomycin, Trough 14.2 ug/mL
[2022-11-01] MEDS: Albuterol 200 PUFF (6.7GM INHALER) INH SCH ×2 (07:07→14:22)
[2022-11-01] MEDS: Mometasone/Formoterol 200/5 60 PUFF INH SCH (07:07)
[2022-11-01] MEDS: Saccharomyces boulardii 250 MG CAP PO SCH (10:07)
[2022-11-01] MEDS: Sertraline 25 MG TAB PO SCH (10:07)
[2022-11-01] MEDS: Furosemide 20 MG TAB PO SCH (10:07)
[2022-11-01] MEDS: guaiFENesin ER 600 MG TAB PO SCH (10:07)
[2022-11-01] MEDS: Metoprolol Tartrate 50 MG TAB PO SCH (10:07)
[2022-11-01] MEDS: Potassium Chloride 20 MEQ TAB PO SCH (10:07)
[2022-11-01 12:13] VITALS: BP 112/67; TEMP 97.9
== END 2022-11-01 15:00 | DRG 573 ==
LOC: ERS 16:50 → SURG A 18:30 → IMCU/EMU 10-12 15:20 → CCU 10-12 16:42 → IMCU/EMU 10-14 10:01 → SURG A 10-16 15:44
PROVIDERS: ADMIT Surgery; ATTEND Surgery
PROC: 4A133R1 Monitoring of Arterial Saturation, Peripheral, Percutaneous Approach (ICD-10-PCS; 2022-10-12)
PROC: 0BH17EZ Insertion of Endotracheal Airway into Trachea, Via Natural or Artificial Opening (ICD-10-PCS; 2022-10-12)
PROC: 0B9F8ZX Drainage of Right Lower Lung Lobe, Via Natural or Artificial Opening Endoscopic, Diagnostic (ICD-10-PCS; 2022-10-12)
PROC: 0B9C8ZX Drainage of Right Upper Lung Lobe, Via Natural or Artificial Opening Endoscopic, Diagnostic (ICD-10-PCS; 2022-10-12)
PROC: 5A1935Z Respiratory Ventilation, Less than 24 Consecutive Hours (ICD-10-PCS; 2022-10-12)
PROC: 5A09557 Assistance with Respiratory Ventilation, Greater than 96 Consecutive Hours, Continuous Positive Airway Pressure (ICD-10-PCS; 2022-10-12)
PROC: 0J9P0ZZ Drainage of Left Lower Leg Subcutaneous Tissue and Fascia, Open Approach (ICD-10-PCS; principal; 2022-10-17)
PROC: 0JBP0ZZ Excision of Left Lower Leg Subcutaneous Tissue and Fascia, Open Approach (ICD-10-PCS; 2022-10-17)
PROC: 0JCP0ZZ Extirpation of Matter from Left Lower Leg Subcutaneous Tissue and Fascia, Open Approach (ICD-10-PCS; 2022-10-17)
PROC: 0JBR0ZZ Excision of Left Foot Subcutaneous Tissue and Fascia, Open Approach (ICD-10-PCS; 2022-10-17)
PROC: 0JCR0ZZ Extirpation of Matter from Left Foot Subcutaneous Tissue and Fascia, Open Approach (ICD-10-PCS; 2022-10-17)
PROC: 02HV33Z Insertion of Infusion Device into Superior Vena Cava, Percutaneous Approach (ICD-10-PCS; 2022-10-19)
PROC: B548ZZA Ultrasonography of Superior Vena Cava, Guidance (ICD-10-PCS; 2022-10-19)
PROC: 0JBP0ZZ Excision of Left Lower Leg Subcutaneous Tissue and Fascia, Open Approach (ICD-10-PCS; 2022-10-20)
PROC: 0JBR0ZZ Excision of Left Foot Subcutaneous Tissue and Fascia, Open Approach (ICD-10-PCS; 2022-10-20)
PROC: 30243N1 Transfusion of Nonautologous Red Blood Cells into Central Vein, Percutaneous Approach (ICD-10-PCS; 2022-10-21)
PROC: 2W0 Placement, Anatomical Regions, Change (ICD-10-PCS; 2022-10-21)
PROC: 0HRLX74 Replacement of Left Lower Leg Skin with Autologous Tissue Substitute, Partial Thickness, External Approach (ICD-10-PCS; 2022-10-22)
PROC: 0HRNX74 Replacement of Left Foot Skin with Autologous Tissue Substitute, Partial Thickness, External Approach (ICD-10-PCS; 2022-10-22)
PROC: 0HBJXZZ Excision of Left Upper Leg Skin, External Approach (ICD-10-PCS; 2022-10-22)
PROC: 0BBC3ZX Excision of Right Upper Lung Lobe, Percutaneous Approach, Diagnostic (ICD-10-PCS; 2022-10-25)
DX: L02.416 Cutaneous abscess of left lower limb (principal); J18.9 Pneumonia, unspecified organism; J96.02 Acute respiratory failure with hypercapnia; J96.21 Acute and chronic respiratory failure with hypoxia; I96 Gangrene, not elsewhere classified; D62 Acute posthemorrhagic anemia; G93.49 Other encephalopathy; J44.0 Chronic obstructive pulmonary disease with (acute) lower respiratory infection; C34.11 Malignant neoplasm of upper lobe, right bronchus or lung; Z20.822 Contact with and (suspected) exposure to COVID-19; E66.01 Morbid (severe) obesity due to excess calories; I10 Essential (primary) hypertension; E87.6 Hypokalemia; F17.210 Nicotine dependence, cigarettes, uncomplicated; E83.42 Hypomagnesemia; B95.62 Methicillin resistant Staphylococcus aureus infection as the cause of diseases classified elsewhere; L98.499 Non-pressure chronic ulcer of skin of other sites with unspecified severity; Z88.2 Allergy status to sulfonamides; Z68.34 Body mass index [BMI] 34.0-34.9, adult; Z90.710 Acquired absence of both cervix and uterus; Z79.899 Other long term (current) drug therapy; Z99.81 Dependence on supplemental oxygen
CPT/HCPCS: 32408; 36415; 36416; 36430; 36569; 36600; 70450; 71045; 71275; 74177; 77012; 80048; 80202; 81001; 82805; 83605; 83735; 83880; 84100; 85014; 85018; 85025; 85610; 85652; 86140; 86850; 86900; 86901; 87040; 87070; 87077; 87186; 87205; 88305; 88333; 88341; 88342; 93005; 93010; 93923; 93970; 94002; 94003; 94640; 94660; 96374; 96375; 97139; C1713; C1751; C1776; J0696; J1100; J1650; J1940; J2175; J2250; J2270; J2272; J2370; J2405; J2543; J2550; J2704; J3010; J3260; J3370; J3370-JW; J3475; J3480; J3490; J7050; J7611; J7620; P9016; P9045; Q9967; S0020; S0028